=== PATIENT | female | born 1935 | race Hispanic/Latino ===

== ENCOUNTER 2018-02-02 11:50 | Emergency (ER) | payer OTHER ==
[2018-02-02 12:33] LABS: Absolute Lymphocytes (CBC) 1.7 K/uL (0.7-4.9); Absolute Monocytes 0.6 K/uL (0.1-1.3); Absolute Neutrophil 2.6 K/uL (1.8-8.0); Basophils % 0.6 % (0-1.3); Eosinophils % 1.1 % (0-4.4); Hematocrit 35.1 % (36.0-45.0); Lymphocytes % 34.6 % (15.3-44.8); MCH 30.6 pg (27.0-35.0); MCV 89.4 fL (80-100); MPV 11.3 fL (7.6-11.3); Monocytes % 11.3 % (3.3-12.3); RBC Red Blood Cell Count 3.92 M/uL (3.86-4.86)
--- NOTE | 2018-02-02 12:36 | RAD REPORT ---
EXAM DESCRIPTION: RAD - Chest Single View - 02/02/2018 12:28 pm CLINICAL HISTORY: Cough, weakness, fibrosis, diminishing appetite, arrhythmia COMPARISON: September 2015 TECHNIQUE: AP portable chest image was obtained 1223 hours . FINDINGS: Mild diffuse fibrotic lung pattern is present similar to the prior imaging study. This is accentuated slightly due to an under penetrated film technique and slightly more shallow inspiratory effort. Few small granulomatous type calcifications are seen in the lung parenchyma, stable from prio r imaging. No peripheral mass, infiltrate or failure finding. Trachea is midline. Heart and vasculatu re are normal. No measurable pleural effusion and no pneumothorax. Osteopenic and degenerative change s are present in the skeleton. No acute finding. No acute aortic findings suspected. IMPRESSION: Mild diffuse fibrotic lung pattern present matching the comparison. No acute finding dulce ntifiable.
[2018-02-02 13:05] LABS: Protime INR 1.08
[2018-02-02 13:56] LABS: ALT/SGPT 18 U/L (12-78); AST/SGOT 21 U/L (15-37); Albumin 3.1 g/dL (3.4-5.0); Alkaline Phosphatase 61 U/L (45-117); BUN Blood Urea Nitrogen 15 mg/dL (7-18); Bicarbonate 29 mmol/L (21-32); Bilirubin Direct 0.2 mg/dL (0-0.2); Bilirubin Total 0.5 mg/dL (0.2-1.0); CKMB Creatine Kinase MB < 1.0 ng/mL (0.3-3.6); Creatine Phosphokinase 27 U/L (26-192); Glucose Level 80 mg/dL (74-106); Lipase 87 U/L (73-393); Magnesium 2.2 mg/dL (1.8-2.4); NT PRO-BNP 302 pg/mL (<450); Potassium 3.3 mmol/L (3.5-5.1); Protein, Total 6.7 g/dL (6.4-8.2); Sodium Level 141 mmol/L (136-145)
--- NOTE | 2018-02-02 14:19 | ER ---
Nurse's Notes [facility] Name: Cathy Orozco Age: 82 yrs Sex: Female : 1935 Arrival Date: 02/02/2018 Time: 11:56 Bed 17 Private MD: Diagnosis: Major depressive disorder, recurrent;Adjustment disorder with depressed mood;Type 2 diabetes mellitus;Cystitis;Hypokalemia Presentation: 02/02 11:57 Presenting complaint: EMS states: family reported pt has been deteriorating since her aa5 about 2 years ago and reported worsening decreased appetite x 2 weeks ago. EMS reports pt stated "I just don't have a reason to live anymore", but denies suicidal ideations. Pt denies pain. Transition of care: patient was not received from another setting of care. Onset of symptoms was 2017. Risk Assessment: Do you want to hurt yourself or someone else? Patient reports no desire to harm self or others. Initial Sepsis Screen: Does the patient meet any 2 criteria? No. Patient's initial sepsis screen is negative. Does the patient have a suspected source of infection? No. Patient's initial sepsis screen is negative. Care prior to arrival: Medication(s) given: Normal saline infusion, 200cc IV initiated. 20 GA, in the left forearm, Glucose check: 80. 11:57 Method Of Arrival: EMS: [facility] aa5 11:57 Acuity: GEORGETTE 3 aa5 Historical: - Allergies: 12:01 Ciprofloxacin; aa5 12:01 metformin; aa5 12:01 steroids; aa5 - PMHx: 12:01 Depression; Diabetes - NIDDM; dizziness-vertigo; Hyperlipidemia; Hypertension; aa5 palpitations; SVT; 12:00 Dementia; aa5 - PSHx: 12:01 Hysterectomy; Cholecystectomy; aa5 - Immunization history:: Adult Immunizations unknown. - Social history:: Smoking status: Patient/guardian denies using tobacco. - Ebola Screening: : No symptoms or risks identified at this time. - Family history:: not pertinent. Screenin:02 Abuse screen: Denies threats or abuse. Nutritional screening: decreased appetite. aa5 Tuberculosis screening: No symptoms or risk factors identified. Fall Risk Fall in past 12 months (25 points). Secondary diagnosis (15 points) dementia, IV access (20 points). Mental Status- Overestimates/Forgets Limitations (15 pts.). Total Stringer Fall Scale indicates High Risk Score (45 or more points). Fall prevention measures have been instituted. Side Rails Up X 2 Placed Close to Nursing Station. Assessment: 12:00 General: Appears comfortable, slender, Behavior is calm, cooperative. Pain: Denies aa5 pain. Neuro: Level of Consciousness is awake, alert, obeys commands, Oriented to person, place, situation, Business Development Agent are weak bilaterally Moves all extremities. Speech is normal, Facial symmetry appears normal, Pupils are PERRLA. Cardiovascular: Heart tones S1 S2 present Edema is absent. Rhythm is sinus rhythm. Respiratory: Airway is patent Respiratory effort is even, unlabored, Respiratory pattern is regular, symmetrical, Breath sounds are clear bilaterally. Denies cough, shortness of breath. GI: Abdomen is flat, non-distended, Bowel sounds present X 4 quads. Abd is soft and non tender X 4 quads. Reports decreased appetite. Pt states "I eat but only a little". When asked if pt has been depressed, pt states "I don't think so" Patient currently denies diarrhea, nausea, vomiting. : No signs and/or symptoms were reported regarding the genitourinary system. EENT: No signs and/or symptoms were reported regarding the EENT system. Derm: Skin is pink, warm \\T\\ dry. Musculoskeletal: Range of motion: intact in all extremities. 13:00 Reassessment: Patient and/or family updated on plan of care and expected duration. Pain aa5 level reassessed. Patient denies pain at this time. 13:00 Neuro: Level of Consciousness is awake, alert, obeys commands, Oriented to person, aa5 place, situation. Respiratory: Airway is patent Respiratory effort is even, unlabored, Respiratory pattern is regular, symmetrical. Derm: Skin is pink, warm \\T\\ dry. 14:00 Reassessment: Patient and/or family updated on plan of care and expected duration. Pain aa5 level reassessed. Patient denies pain at this time. Awaiting disposition. Pt's daughter remains at bedside . Neuro: Level of Consciousness is awake, alert, obeys commands, Oriented to person, place, situation. Respiratory: Airway is patent Respiratory effort is even, unlabored, Respiratory pattern is regular, symmetrical. Derm: Skin is pink, warm \\T\\ dry. 15:00 Neuro: Level of Consciousness is awake, alert, obeys commands, Oriented to person, aa5 place, situation. Respiratory: Airway is patent Respiratory effort is even, unlabored, Respiratory pattern is regular, symmetrical. Derm: Skin is pink, warm \\T\\ dry. Vital Signs: 12:00 BP 160 / 67; Pulse 62; Resp 16 S; Temp 98.0(O); Pulse Ox 99% on R/A; Pain 0/10; aa5 12:59 BP 168 / 60; Pulse 60; Resp 22; Pulse Ox 95% on R/A; mh5 14:04 BP 156 / 68; Pulse 61; Resp 20 S; Pulse Ox 98% on R/A; aa5 ED Course: 11:56 Patient arrived in ED. aa5 11:59 Triage completed. aa5 11:59 Arm band placed on. aa5 11:59 Patient has correct armband on for positive identification. Placed in gown. Bed in low aa5 position. Call light in reach. Side rails up X2. 12:03 Ced Weathers MD is Attending Physician. [place] 12:05 Renate Adan, IZABELA is Primary Nurse. aa5 12:10 Maintain EMS IV. Dressing intact. Good blood return noted. Site clean \\T\\ dry. Gauge \\T\\ aa 5 site: 20 G to L FA . 12:10 Initial lab(s) drawn, by ED staff, sent to lab. aa5 12:22 EKG done, by dye lab technician. reviewed by Ced Weathers MD. at1 12:25 X-ray completed. Portable x-ray completed in exam room. Patient tolerated procedure ag1 well. 12:26 XRAY Chest (1 view) In Process Unspecified. EDMS 15:10 No provider procedures requiring assistance completed. IV discontinued, intact, aa5 bleeding controlled, No redness/swelling at site. Pressure dressing applied. 15:15 Safety checks: Items removed: yes. Door open/sign placed on door: yes. Family/friend 5 present: no. Sitter present: Yes. Administered Medications: 12:15 Drug: NS 0.9% 1000 ml Route: IV; Rate: 125 ml/hr; Site: left forearm; aa5 15:10 Follow up: IV Status: Order to discontinue infusion aa5 14:45 Drug: Potassium Effervescent Tablet 25 mEq Route: PO; aa5 15:00 Follow up: Response: No adverse reaction aa5 14:45 Drug: Rocephin - (cefTRIAXone) 1 grams {Note: given IVP per pharmacy protocol at this aa5 time .} Route: IVPB; Infused Over: 30 mins; Site: left forearm; 15:00 Follow up: Response: No adverse reaction aa5 14:45 Drug: Bactrim (160 mg-800 mg (DS) 1 tablet Route: PO; aa5 15:00 Follow up: Response: No adverse reaction aa Outcome: 14:17 Discharge ordered by . mg 15:10 Discharged to home via wheelchair, with family. aa5 15:10 Condition: stable 15:10 Discharge instructions given to patient, family, Instructed on discharge instructions, follow up and referral plans. medication usage, Demonstrated understanding of instructions, follow-up care, medications, Prescriptions given X 1. 15:15 Patient left the ED. aa5 Addendum: 02/04/2018 10:56 Addendum: Culture Results: Positive urine culture. Bacteria is resistant to, has h b intermediate sensitivity, or is not tested against prescribed antibiotics. Report given to DAKOTA for further evaluation and then to 911 telecommunicator for follow up with patient. Phone call Prescription called-in to pharmacy of choice. [facility] in [place], Nitrofurontion 100 mg PO x 10 days. Signatures: Dispatcher [employer] Ced Chaudhari MD MD cha Calderon, Audri, RN RN aa5 Marva ulloa, workforce staffing advisor EKG Tat1 Ama Segunod ag1 Bee Wilson RN RN hb Martinez, Maria 5 Corrections: (The following items were deleted from the chart) 02/02 12:44 12:00 Neuro: Level of Consciousness is awake, alert, obeys commands, Oriented to aa5 person, place, time, situation, Business Development Agent are weak bilaterally Moves all extremities. Speech is normal, Facial symmetry appears normal, Pupils are PERRLA, aa5
--- NOTE | 2018-02-02 14:19 | EDPHYS ---
Physician Documentation [facility] Name: Cathy Orozco Age: 82 yrs Sex: Female : 1935 Arrival Date: 02/02/2018 Time: 11:56 Bed 17 Private MD: ED Physician Ced Weathers HPI: 02/02 13:35 This 82 yrs old Female presents to ER via EMS with complaints of Decreased mg Appetite. 13:35 depressed, not suicidal. Onset: The symptoms/episode began/occurred 7 day(s) ago. mg Severity of symptoms: At their worst the symptoms were mild moderate in the emergency department the symptoms are unchanged. The patient has not experienced similar symptoms in the past. Historical: - Allergies: 12:01 Ciprofloxacin; aa5 12:01 metformin; aa5 12:01 steroids; aa5 - PMHx: 12:01 Depression; Diabetes - NIDDM; dizziness-vertigo; Hyperlipidemia; Hypertension; aa5 palpitations; SVT; 12:00 Dementia; aa5 - PSHx: 12:01 Hysterectomy; Cholecystectomy; aa5 - Immunization history:: Adult Immunizations unknown. - Social history:: Smoking status: Patient/guardian denies using tobacco. - Ebola Screening: : No symptoms or risks identified at this time. - Family history:: not pertinent. ROS: 13:35 Constitutional: Negative for fever, chills, and weight loss, Eyes: Negative for injury, mg pain, redness, and discharge, ENT: Negative for injury, pain, and discharge, Neck: Negative for injury, pain, and swelling, Cardiovascular: Negative for chest pain, palpitations, and edema, Respiratory: Negative for shortness of breath, cough, wheezing, and pleuritic chest pain, Abdomen/GI: Negative for abdominal pain, nausea, vomiting, diarrhea, and constipation, Back: Negative for injury and pain, : Negative for injury, bleeding, discharge, and swelling, MS/Extremity: Negative for injury and deformity, Skin: Negative for injury, rash, and discoloration, Neuro: Negative for headache, weakness, numbness, tingling, and seizure, Allergy/Immunology: Negative for hives, rash, and allergies, Endocrine: Negative for neck swelling, polydipsia, polyuria, polyphagia, and marked weight changes, Hematologic/Lymphatic: Negative for swollen nodes, abnormal bleeding, and unusual bruising. 13:35 Psych: Positive for depression. Exam: 13:35 Constitutional: This is a well developed, well nourished patient who is awake, alert, mg and in no acute distress. Head/Face: Normocephalic, atraumatic. Eyes: Pupils equal round and reactive to light, extra-ocular motions intact. Lids and lashes normal. Conjunctiva and sclera are non-icteric and not injected. Cornea within normal limits. Periorbital areas with no swelling, redness, or edema. ENT: Nares patent. No nasal discharge, no septal abnormalities noted. Tympanic membranes are normal and external auditory canals are clear. Oropharynx with no redness, swelling, or masses, exudates, or evidence of obstruction, uvula midline. Mucous membranes moist. Neck: Trachea midline, no thyromegaly or masses palpated, and no cervical lymphadenopathy. Supple, full range of motion without nuchal rigidity, or vertebral point tenderness. No Meningismus. Chest/axilla: Normal chest wall appearance and motion. Nontender with no deformity. No lesions are appreciated. Cardiovascular: Regular rate and rhythm with a normal S1 and S2. No gallops, murmurs, or rubs. Normal PMI, no JVD. No pulse deficits. Respiratory: Lungs have equal breath sounds bilaterally, clear to auscultation and percussion. No rales, rhonchi or wheezes noted. No increased work of breathing, no retractions or nasal flaring. Abdomen/GI: Soft, non-tender, with normal bowel sounds. No distension or tympany. No guarding or rebound. No evidence of tenderness throughout. Back: No spinal tenderness. No costovertebral tenderness. Full range of motion. Female : Normal external genitalia. Skin: Warm, dry with normal turgor. Normal color with no rashes, no lesions, and no evidence of cellulitis. MS/ Extremity: Pulses equal, no cyanosis. Neurovascular intact. Full, normal range of motion. Neuro: Awake and alert, GCS 15, oriented to person, place, time, and situation. Cranial nerves II-XII grossly intact. Motor strength 5/5 in all extremities. Sensory grossly intact. Cerebellar exam normal. Normal gait. Psych: Awake, alert, with orientation to person, place and time. Behavior, mood, and affect are within normal limits. Vital Signs: 12:00 BP 160 / 67; Pulse 62; Resp 16 S; Temp 98.0(O); Pulse Ox 99% on R/A; Pain 0/10; aa5 12:59 BP 168 / 60; Pulse 60; Resp 22; Pulse Ox 95% on R/A; mh5 14:04 BP 156 / 68; Pulse 61; Resp 20 S; Pulse Ox 98% on R/A; aa5 MDM: 12:15 Patient medically screened. [facility] 13:37 Data reviewed: vital signs, nurses notes, lab test result(s), EKG, radiologic studies, mg plain films. 02/02 12:04 Order name: Basic Metabolic Panel; Complete Time: 14:15 [facility] 02/02 12:04 Order name: CBC with Diff; Complete Time: 13:35 [facility] 02/02 12:04 Order name: Ckmb; Complete Time: 14:15 [facility] 02/02 12:04 Order name: CPK; Complete Time: 14:15 [facility] 02/02 12:04 Order name: LFT's; Complete Time: 14:15 [facility] 02/02 12:04 Order name: Magnesium; Complete Time: 14:15 [facility] 02/02 12:04 Order name: NT PRO-BNP; Complete Time: 14:15 [facility] 02/02 12:04 Order name: PT-INR; Complete Time: 13:35 [facility] 02/02 12:04 Order name: Ptt, Activated; Complete Time: 13:35 [facility] 02/02 12:04 Order name: Troponin (emerg Dept Use Only); Complete Time: 13:35 [facility] 02/02 12:04 Order name: Lipase; Complete Time: 14:15 [facility] 02/02 12:04 Order name: Urine Culture [facility] 02/02 12:04 Order name: TSH; Complete Time: 14:15 [facility] 02/02 14:42 Order name: Urine Dipstick--Ancillary (enter results) 02/02 12:04 Order name: XRAY Chest (1 view); Complete Time: 13:35 [facility] 02/02 12:04 Order name: EKG; Complete Time: 12:05 [facility] 02/02 12:04 Order name: Cardiac monitoring; Complete Time: 12:06 [facility] 02/02 12:04 Order name: EKG - Nurse/Tech; Complete Time: 12:25 [facility] 02/02 12:04 Order name: IV Saline Lock; Complete Time: 12:06 [facility] 02/02 12:04 Order name: Labs collected and sent; Complete Time: 12:25 [facility] 02/02 12:04 Order name: O2 Per Protocol; Complete Time: 12:06 [facility] 02/02 12:04 Order name: O2 Sat Monitoring; Complete Time: 12:05 [facility] 02/02 12:04 Order name: Urine Dipstick-Ancillary (obtain specimen); Complete Time: 14:01 [facility] Administered Medications: 12:15 Drug: NS 0.9% 1000 ml Route: IV; Rate: 125 ml/hr; Site: left forearm; aa5 15:10 Follow up: IV Status: Order to discontinue infusion aa5 14:45 Drug: Potassium Effervescent Tablet 25 mEq Route: PO; aa5 15:00 Follow up: Response: No adverse reaction aa5 14:45 Drug: Rocephin - (cefTRIAXone) 1 grams {Note: given IVP per pharmacy protocol at this aa5 time .} Route: IVPB; Infused Over: 30 mins; Site: left forearm; 15:00 Follow up: Response: No adverse reaction aa5 14:45 Drug: Bactrim (160 mg-800 mg (DS) 1 tablet Route: PO; aa5 15:00 Follow up: Response: No adverse reaction aa5 Disposition: 02/02/18 14:17 Discharged to Home. Impression: Major depressive disorder, recurrent, Adjustment disorder with depressed mood, Type 2 diabetes mellitus, Cystitis, Hypokalemia. - Condition is Stable. - Discharge Instructions: Adjustment Disorder, Depression, Adult, Type 2 Diabetes Mellitus, Adult, Potassium Content of Foods, Dysuria, Depression, Adult, [id number], Type 2 Diabetes Mellitus, Adult, [id number], Hypokalemia. - Prescriptions for Bactrim DS 800- 160 mg Oral Tablet - take 1 tablet by ORAL route every 12 hours for 7 days; 14 tablet. - Medication Reconciliation Form, Thank You Letter, Antibiotic Education, Prescription Opioid Use form. - Follow up: Private Physician; When: 2 - 3 days; Reason: Recheck today's complaints, Continuance of care, Re-evaluation by your physician. - Problem is new. - Symptoms have improved. Signatures: Dispatcher [employer] EDCed Funes MD MD cha Calderon, Audri, RN RN aa5 Corrections: (The following items were deleted from the chart) 15:15 14:17 02/02/2018 14:17 Discharged to Home. Impression: Major depressive disorder, aa5 recurrent; Adjustment disorder with depressed mood; Type 2 diabetes mellitus; Cystitis; Hypokalemia. Condition is Stable. Discharge Instructions: Adjustment Disorder, Depression, Adult, Type 2 Diabetes Mellitus, Adult, Depression, Adult, [id number], Type 2 Diabetes Mellitus, Adult, [id number]. Forms are Medication Reconciliation Form, Thank You Letter, Antibiotic Education, Prescription Opioid Use. Follow up: Private Physician; When: 2 - 3 days; Reason: Recheck today's complaints, Continuance of care, Re-evaluation by your physician. Problem is new. Symptoms have improved. mg
[2018-02-02] MEDS ORDERED: POTASSIUM 25 MEQ EFFERV TAB ONE (14:32)
[2018-02-02] MEDS ORDERED: CEFTRIAXONE/SWI 1gm 1 GM/10 ML SYR ONE (14:33)
[2018-02-02] MEDS ORDERED: SMZ./TMP. 800/160 MG TABLET ONE (14:33)
--- NOTE | 2018-02-02 14:51 | EKG ---
Test Date: 2018-02-02 Test Time: 12:15:38 [employer] Cutting Supervisor: MY MEASUREMENT RESULTS: Intervals: Rate: 62 IN: 196 QRSD: 78 QT: 434 QTc: 440 [place]: P: 38 IN: 196 QRS: 46 T: 60 INTERPRETIVE STATEMENTS: Normal sinus rhythm Normal ECG Compared to ECG 10/09/2015 09:10:13 No significant changes Electronically Signed On 02-02-18 14:50:07 CDT by Tommie Kinsey
[2018-02-02 15:18] VITALS: TEMP 98
[2018-02-02 15:21] VITALS: BP 156/68; O2SAT 98
[2018-02-02 15:29] LABS: Urine Blood TRACE (NEG); Urine Glucose NEGATIVE (NEG); Urine Protein NEGATIVE (NEG); Urine pH 5.5 (5.0-7.0)
== END 2018-02-02 15:15 | disposition home or self-care (01) ==
LOC: ER 11:50
DX: F33.9 Major depressive disorder, recurrent, unspecified (principal); F43.21 Adjustment disorder with depressed mood; N30.90 Cystitis, unspecified without hematuria; E87.6 Hypokalemia; E78.5 Hyperlipidemia, unspecified; E11.9 Type 2 diabetes mellitus without complications; F03.90 Unspecified dementia, unspecified severity, without behavioral disturbance, psychotic disturbance, mood disturbance, and anxiety; Z88.1 Allergy status to other antibiotic agents; Z88.8 Allergy status to other drugs, medicaments and biological substances
CPT/HCPCS: 36415; 71045; 80048; 80076; 81003; 82550; 82553; 83690; 83735; 83880; 84443; 84484; 85025; 85610; 85730; 87077; 87086; 87088; 87186; 93005; 96361; 96374; 99284; J0696

== ENCOUNTER 2018-02-05 08:59 | Emergency (ER) | payer OTHER ==
[2018-02-05] MEDS ORDERED: ONDANSETRON 4 MG/2 ML VIAL ONE (09:29)
[2018-02-05 09:48] LABS: Absolute Lymphocytes (CBC) 1.1 K/uL (0.7-4.9); Absolute Monocytes 0.5 K/uL (0.1-1.3); Absolute Neutrophil 3.9 K/uL (1.8-8.0); Basophils % 0.6 % (0-1.3); Eosinophils % 0.3 % (0-4.4); Hematocrit 35.8 % (36.0-45.0); Lymphocytes % 19.5 % (15.3-44.8); MCV 90.2 fL (80-100); MPV 11.5 fL (7.6-11.3); Monocytes % 8.7 % (3.3-12.3); RBC Red Blood Cell Count 3.97 M/uL (3.86-4.86)
[2018-02-05 10:12] LABS: Albumin 3.4 g/dL (3.4-5.0); Bilirubin Direct 0.2 mg/dL (0-0.2); Bilirubin Total 0.5 mg/dL (0.2-1.0); Protein, Total 7.3 g/dL (6.4-8.2)
--- NOTE | 2018-02-05 12:33 | EDPHYS ---
Physician Documentation [facility] Name: Cathy Orozco Age: 82 yrs Sex: Female : 1935 Arrival Date: 02/05/2018 Time: 09:00 Bed 6 Private MD: ED Physician Noe Ramon HPI: 02/05 09:26 This 82 yrs old Female presents to ER via EMS with complaints of Vomiting. rn 09:26 The patient presents to the emergency department with nausea, vomiting. Onset: The rn symptoms/episode began/occurred 4 month(s) ago. Possible causes: unknown. Severity of symptoms: At their worst the symptoms were mild in the emergency department the symptoms are unchanged. The patient has experienced similar episodes in the past. Patient reports not feeling well for 4 months, states threw up last night twice, mild abd pain, no diarrhea, no fever/cough/chest pain/sob. 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 . Historical: - Allergies: 09:05 Ciprofloxacin; tw2 09:05 metformin; tw2 09:05 steroids; tw2 - Home Meds: 09:05 citalopram 10 mg tab 1 tab once daily [Active]; glimepiride 4 mg Oral tab twice a day tw2 [Active]; lisinopril 40 mg Oral tab 1 tab once daily [Active]; pravastatin 40 mg Oral tab 1 tab once daily [Active]; 09:08 amlodipine 2.5 mg tab 1 tab once daily [Active]; donepezil 5 mg oral TbDL once daily hb [Active]; fluoxetine 20 mg Oral cap 1 cap once daily [Active]; - PMHx: 09:05 Dementia; Diabetes - NIDDM; dizziness-vertigo; Hyperlipidemia; Hypertension; tw2 palpitations; SVT; Depression; - PSHx: 09:05 Hysterectomy; Cholecystectomy; tw2 - Immunization history:: Adult Immunizations. - Social history:: Smoking status: . - Ebola Screening: : Patient denies travel to an Ebola-affected area in the 21 days before illness onset. - Family history:: not pertinent. - Hospitalizations: : No recent hospitalization is reported. ROS: 09:26 Constitutional: Negative for fever, chills, and weight loss, Eyes: Negative for injury, rn pain, redness, and discharge, Neck: Negative for injury, pain, and swelling, Cardiovascular: Negative for chest pain, palpitations, and edema, Respiratory: Negative for shortness of breath, cough, wheezing, and pleuritic chest pain, Abdomen/GI: Negative for diarrhea, and constipation, MS/Extremity: Negative for injury and deformity, Skin: Negative for injury, rash, and discoloration, Neuro: Negative for headache, weakness, numbness, tingling, and seizure. Exam: 09:26 Constitutional: This is a well developed, well nourished patient who is awake, alert, rn and in no acute distress. Head/Face: Normocephalic, atraumatic. Eyes: Pupils equal round and reactive to light, extra-ocular motions intact. Lids and lashes normal. Conjunctiva and sclera are non-icteric and not injected. Cornea within normal limits. Periorbital areas with no swelling, redness, or edema. ENT: Nares patent. No nasal discharge, no septal abnormalities noted. Oropharynx with no redness, swelling, or masses, exudates, or evidence of obstruction, uvula midline. Mucous membranes moist. Neck: Trachea midline, no thyromegaly or masses palpated, and no cervical lymphadenopathy. Supple, full range of motion without nuchal rigidity, or vertebral point tenderness. No Meningismus. Cardiovascular: Regular rate and rhythm with a normal S1 and S2. No gallops, murmurs, or rubs. Normal PMI, no JVD. No pulse deficits. Respiratory: Lungs have equal breath sounds bilaterally, clear to auscultation and percussion. No rales, rhonchi or wheezes noted. No increased work of breathing, no retractions or nasal flaring. Abdomen/GI: Soft, non-tender, with normal bowel sounds. No distension or tympany. No guarding or rebound. No evidence of tenderness throughout. MS/ Extremity: Pulses equal, no cyanosis. Neurovascular intact. Full, normal range of motion. Equal circumference. Neuro: Awake and alert, GCS 15, oriented to person, place, and situation. Cranial nerves II-XII grossly intact. Motor strength 5/5 in all extremities. Sensory grossly intact. Vital Signs: 09:02 BP 168 / 62; Pulse 77; Resp 19; Temp 97.8(TE); Pulse Ox 100% on R/A; Weight 49.9 kg (R);tw2 09:53 BP 143 / 90; Pulse 69; Resp 16; Pulse Ox 98% on R/A; tw2 10:54 BP 153 / 56; Pulse 70; Resp 16; Pulse Ox 99% on R/A; tw2 11:49 BP 112 / 77; Pulse 73; Resp 14; Pulse Ox 96% on R/A; tw2 12:37 BP 136 / 47; Pulse 62; Resp 17; Pulse Ox 97% on R/A; tw2 13:30 BP 132 / 78; Pulse 64; Resp 15; Pulse Ox 100% on R/A; hb MDM: 09:00 Patient medically screened. rn 12:32 Differential diagnosis: Nonspecific abd pain, viral gastroenteritis. Data reviewed: rn vital signs, nurses notes, lab test result(s), and as a result, I will discharge patient. Counseling: I had a detailed discussion with the patient and/or guardian regarding: the historical points, exam findings, and any diagnostic results supporting the discharge/admit diagnosis, lab results, the need for outpatient follow up, to return to the emergency department if symptoms worsen or persist or if there are any questions or concerns that arise at home. Special discussion: I discussed with the patient/guardian in detail that at this point there is no indication for admission to the hospital. It is understood, however, that if the symptoms persist or worsen the patient needs to return immediately for re-evaluation. ED course: Daughter here, states she believes she is doing this for attention, has a problem sniffing rubbing alcohol and was upset, normal bloodwork, will dc home. Is currently on abx for UTI so no urine tested here. . 02/05 09:22 Order name: Basic Metabolic Panel; Complete Time: 10:24 rn 02/05 09:22 Order name: CBC with Diff; Complete Time: 10:01 rn 02/05 09:22 Order name: Hepatic Function; Complete Time: 10:24 rn 02/05 09:22 Order name: Lipase; Complete Time: 10:24 rn 02/05 09:25 Order name: ETOH Level; Complete Time: 10:43 rn 02/05 09:22 Order name: IV Saline Lock; Complete Time: 09:37 rn 02/05 09:22 Order name: Labs collected and sent; Complete Time: : rn Administered Medications: : Drug: Zofran 4 mg Route: IVP; Site: right antecubital; tw2 10:00 Follow up: Response: No adverse reaction; Nausea is decreased hb Disposition: 02/05/18 12:33 Discharged to Home. Impression: Nausea and vomiting. - Condition is Stable. - Discharge Instructions: Nausea and Vomiting, Adult. - Medication Reconciliation Form, Thank You Letter, Antibiotic Education, Prescription Opioid Use form. - Follow up: Private Physician; When: As needed; Reason: Recheck today's complaints, Re-evaluation by your physician. - Problem is new. - Symptoms have improved. Signatures: Dispatcher [employer] EDMS Noe Ramon MD MD rn Baxter, Heather, RN RN hb Wise, Tara, RN RN tw2 Corrections: (The following items were deleted from the chart) 13:45 12:33 02/05/2018 12:33 Discharged to Home. Impression: Nausea and vomiting. Condition hb is Stable. Forms are Medication Reconciliation Form, Thank You Letter, Antibiotic Education, Prescription Opioid Use. Follow up: Private Physician; When: As needed; Reason: Recheck today's complaints, Re-evaluation by your physician. Problem is new. Symptoms have improved. rn
--- NOTE | 2018-02-05 12:33 | ER ---
Nurse's Notes [facility] Name: Cathy Orozco Age: 82 yrs Sex: Female : 1935 Arrival Date: 02/05/2018 Time: 09:00 Bed 6 Private MD: Diagnosis: Nausea and vomiting Presentation: 02/05 09:01 Presenting complaint: EMS states: daughter came to give her meds this morning and pt tw2 wanted to know if daughter brought her alcohol to sniff and daughter said no, pt has not had alcohol to sniff for 3 days, daughter states pt is mad and now she wants to go to the ER, vs stable, 222 mg/dL blood glucose, also failure to thrive as spouse one year ago and pt has not been eating well, pt hx: DM, dementia, pt also has UTI was here a week ago. Transition of care: patient was not received from another setting of care. Onset of symptoms was February 05, 2018. Risk Assessment: Do you want to hurt yourself or someone else? Patient reports no desire to harm self or others. Initial Sepsis Screen: Does the patient meet any 2 criteria? No. Patient's initial sepsis screen is negative. Does the patient have a suspected source of infection? No. Patient's initial sepsis screen is negative. Care prior to arrival: None. 09:01 Method Of Arrival: EMS: [facility] tw2 09:01 Acuity: GEORGETTE 3 tw2 Historical: - Allergies: 09:05 Ciprofloxacin; tw2 09:05 metformin; tw2 09:05 steroids; tw2 - Home Meds: 09:05 citalopram 10 mg tab 1 tab once daily [Active]; glimepiride 4 mg Oral tab twice a day tw2 [Active]; lisinopril 40 mg Oral tab 1 tab once daily [Active]; pravastatin 40 mg Oral tab 1 tab once daily [Active]; 09:08 amlodipine 2.5 mg tab 1 tab once daily [Active]; donepezil 5 mg oral TbDL once daily hb [Active]; fluoxetine 20 mg Oral cap 1 cap once daily [Active]; - PMHx: 09:05 Dementia; Diabetes - NIDDM; dizziness-vertigo; Hyperlipidemia; Hypertension; tw2 palpitations; SVT; Depression; - PSHx: 09:05 Hysterectomy; Cholecystectomy; tw2 - Immunization history:: Adult Immunizations. - Social history:: Smoking status: . - Ebola Screening: : Patient denies travel to an Ebola-affected area in the 21 days before illness onset. - Family history:: not pertinent. - Hospitalizations: : No recent hospitalization is reported. Screenin:06 Abuse screen: Denies threats or abuse. Nutritional screening: No deficits noted. tw2 Tuberculosis screening: No symptoms or risk factors identified. Fall Risk None identified. Assessment: 09:08 General: Appears in no apparent distress. Behavior is appropriate for age. Pain: Denies tw2 pain. Neuro: Level of Consciousness is awake, alert, obeys commands, Oriented to person, place. Cardiovascular: Denies chest pain, shortness of breath, Heart tones S1 S2 Patient's skin is warm and dry. Respiratory: Airway is patent Respiratory effort is even, unlabored, Respiratory pattern is regular, symmetrical, Breath sounds are clear bilaterally. GI: Abdomen is flat, Bowel sounds present X 4 quads. Reports vomiting, once last night and once this morning. : No signs and/or symptoms were reported regarding the genitourinary system. EENT: No signs and/or symptoms were reported regarding the EENT system. Derm: No signs and/or symptoms reported regarding the dermatologic system. Musculoskeletal: Range of motion: intact in all extremities. 09:54 Reassessment: Patient appears in no apparent distress at this time. Patient and/or tw2 family updated on plan of care and expected duration. Pain level reassessed. 10:54 Reassessment: Patient appears in no apparent distress at this time. Patient and/or tw2 family updated on plan of care and expected duration. Pain level reassessed. 11:50 Reassessment: Patient appears in no apparent distress at this time. Patient and/or tw2 family updated on plan of care and expected duration. Pain level reassessed. 12:38 Reassessment: Patient appears in no apparent distress at this time. Patient and/or tw2 family updated on plan of care and expected duration. Pain level reassessed. 13:30 Reassessment: Patient appears in no apparent distress at this time. Patient and/or hb family updated on plan of care and expected duration. Pain level reassessed. Patient is alert, oriented x 3, equal unlabored respirations, skin warm/dry/pink. Patient states symptoms have improved. Vital Signs: 09:02 BP 168 / 62; Pulse 77; Resp 19; Temp 97.8(TE); Pulse Ox 100% on R/A; Weight 49.9 kg (R);tw2 09:53 BP 143 / 90; Pulse 69; Resp 16; Pulse Ox 98% on R/A; tw2 10:54 BP 153 / 56; Pulse 70; Resp 16; Pulse Ox 99% on R/A; tw2 11:49 BP 112 / 77; Pulse 73; Resp 14; Pulse Ox 96% on R/A; tw2 12:37 BP 136 / 47; Pulse 62; Resp 17; Pulse Ox 97% on R/A; tw2 13:30 BP 132 / 78; Pulse 64; Resp 15; Pulse Ox 100% on R/A; hb ED Course: 09:00 Patient arrived in ED. tw2 09:00 Noe Ramon MD is Attending Physician. rn 09:02 Triage completed. tw2 09:02 Arm band placed on. tw2 09:06 Bed in low position. Call light in reach. potline monitor on. Pulse ox on. NIBP on. tw2 Warm blanket given. 09:32 Bee Wilson, RN is Primary Nurse. hb 09:35 No provider procedures requiring assistance completed. Missed attempt(s): 22 gauge in tw2 left antecubital area. Bleeding controlled, band aid applied, catheter tip intact. Inserted saline lock: 22 gauge in right antecubital area, using aseptic technique. Blood collected. 13:39 IV discontinued, intact, bleeding controlled, No redness/swelling at site. Pressure hb dressing applied. Administered Medications: 09:37 Drug: Zofran 4 mg Route: IVP; Site: right antecubital; tw2 10:00 Follow up: Response: No adverse reaction; Nausea is decreased hb Outcome: 12:33 Discharge ordered by . rn 13:39 Discharged to home ambulatory, with family. hb 13:39 Condition: stable 13:39 Discharge instructions given to patient, family, Instructed on discharge instructions, follow up and referral plans. medication usage, Demonstrated understanding of instructions, follow-up care, medications. 13:45 Patient left the ED. hb Signatures: Noe Ramon MD MD rn Baxter, Heather, RN RN hb Wise, Tara, RN RN tw2 Corrections: (The following items were deleted from the chart) 09:06 09: Presenting complaint: EMS states: daughter came to give her meds this morning and tw2 pt wanted to know if daughter brought her alcohol to sniff and daughter said no, pt has not had alcohol to sniff for 3 days, daughter states pt is mad and now she wants to go to the ER tw2 09: Presenting complaint: EMS states: daughter came to give her meds this morning and tw2 pt wanted to know if daughter brought her alcohol to sniff and daughter said no, pt has not had alcohol to sniff for 3 days, daughter states pt is mad and now she wants to go to the ER, vs stable, 222 mg/dL blood glucose, also failure to thrive as spouse one year ago and pt has not been eating well tw2 09: Presenting complaint: EMS states: daughter came to give her meds this morning and tw2 pt wanted to know if daughter brought her alcohol to sniff and daughter said no, pt has not had alcohol to sniff for 3 days, daughter states pt is mad and now she wants to go to the ER, vs stable, 222 mg/dL blood glucose, also failure to thrive as spouse one year ago and pt has not been eating well, pt hx: DM, dementia, tw2
[2018-02-05 13:53] VITALS: TEMP 97.8
[2018-02-05 13:58] VITALS: BP 132/78; O2SAT 100
== END 2018-02-05 13:45 | disposition home or self-care (01) ==
LOC: ER 08:59
DX: R11.2 Nausea with vomiting, unspecified (principal); F03.90 Unspecified dementia, unspecified severity, without behavioral disturbance, psychotic disturbance, mood disturbance, and anxiety; E11.9 Type 2 diabetes mellitus without complications; I10 Essential (primary) hypertension; E78.5 Hyperlipidemia, unspecified; Z79.84 Long term (current) use of oral hypoglycemic drugs
CPT/HCPCS: 36415; 80048; 80076; 80320; 83690; 85025; 96374; 99284; J2405

== ENCOUNTER 2018-02-08 21:02 | Observation (INO) | payer OTHER ==
[2018-02-08 23:36] LABS: Absolute Lymphocytes (CBC) 1.4 K/uL (0.7-4.9); Absolute Monocytes 0.9 K/uL (0.1-1.3); Absolute Neutrophil 8.1 K/uL (1.8-8.0); Basophils % 0.4 % (0-1.3); Eosinophils % 0.1 % (0-4.4); Hematocrit 37.8 % (36.0-45.0); Lymphocytes % 13.3 % (15.3-44.8); MCH 30.9 pg (27.0-35.0); MCV 91.4 fL (80-100); Monocytes % 8.4 % (3.3-12.3); RBC Red Blood Cell Count 4.14 M/uL (3.86-4.86)
[2018-02-08 23:50] LABS: Magnesium 2.2 mg/dL (1.8-2.4); Potassium 4.4 mmol/L (3.5-5.1)
--- NOTE | 2018-02-09 00:07 | ER ---
Nurse's Notes [facility] Name: Cathy Orozco Age: 82 yrs Sex: Female : 1935 Arrival Date: 02/08/2018 Time: 21:06 Bed 23 Private MD: Raz Guevara Diagnosis: Syncope and collapse;Weakness Presentation: 02/08 21:25 Presenting complaint: pt's daughter states pt has been "huffing rubbing alcohol" they bb have taken it away from her and they think she is going into withdrawals pt has been having hallucinations, not wanting to eat and has not been taking care of herself. Daughter states they check her sugar for her diabetes every day and today when she got there pt was laying in bed and had been incontinent of urine. She got her in the shower and pt had syncopal episode pt has been seen here Thursday and Thursday for similar symptoms and diagnosed with a UTI on Thursday and is taking antibiotics. Daughter states pt's two years ago and pt is going downhill. Transition of care: patient was not received from another setting of care. Onset of symptoms is unknown. Risk Assessment: Do you want to hurt yourself or someone else? Patient reports no desire to harm self or others. Initial Sepsis Screen: Does the patient meet any 2 criteria? No. Patient's initial sepsis screen is negative. Does the patient have a suspected source of infection? No. Patient's initial sepsis screen is negative. Care prior to arrival: None. 21:25 Method Of Arrival: Wheelchair bb 21:25 Acuity: GEORGETTE 2 bb 21:26 Risk Assessment: Do you want to hurt yourself or someone else? Patient reports no rv desire to harm self or others. Historical: - Allergies: 21:30 Ciprofloxacin; bb 21:30 metformin; bb 21:30 steroids; bb - Home Meds: 21:30 amlodipine 2.5 mg tab 1 tab once daily [Active]; citalopram 10 mg tab 1 tab once daily bb [Active]; donepezil 5 mg Oral TbDL once daily [Active]; fluoxetine 20 mg Oral cap 1 cap once daily [Active]; glimepiride 4 mg Oral tab twice a day [Active]; lisinopril 40 mg Oral tab 1 tab once daily [Active]; pravastatin 40 mg Oral tab 1 tab once daily [Active]; - PMHx: 21:30 Dementia; Depression; Diabetes - NIDDM; dizziness-vertigo; Hyperlipidemia; bb Hypertension; palpitations; SVT; - PSHx: 21:30 Hysterectomy; Cholecystectomy; bb - Immunization history:: Adult Immunizations up to date. - Social history:: Smoking status: unknown. - Ebola Screening: : No symptoms or risks identified at this time. Screenin:26 Abuse screen: Denies threats or abuse. Denies injuries from another. Nutritional rv screening: No deficits noted. Tuberculosis screening: No symptoms or risk factors identified. Fall Risk None identified. Assessment: 21:25 General: Appears in no apparent distress. comfortable, Behavior is calm, cooperative. rv Pain: Denies pain. Neuro: Level of Consciousness is awake, alert, obeys commands, Oriented to person, place, time. Cardiovascular: Heart tones S1 S2 present. Respiratory: Airway is patent. GI: No signs and/or symptoms were reported involving the gastrointestinal system. : No signs and/or symptoms were reported regarding the genitourinary system. EENT: No signs and/or symptoms were reported regarding the EENT system. Derm: Skin is intact. 02/09 00:33 Reassessment: Patient appears in no apparent distress at this time. Patient and/or rv family updated on plan of care and expected duration. Pain level reassessed. Patient is alert, oriented x 3, equal unlabored respirations, skin warm/dry/pink. PATIENT CAME BACK FROM CT SCAN. FOR ADMISSION. AWAITING ADMITTING ORDERS FROM HOSPITALIST. Vital Signs: 02/08 21:30 BP 157 / 81; Pulse 75; Resp 18 S; Temp 97.8(O); Pulse Ox 99% on R/A; Weight 54.43 kg bb (R); Height 5 ft. 3 in. (160.02 cm) (R); Pain 0/10; 22:39 BP 144 / 94; Pulse 74; Pulse Ox 100% on R/A; rv 23:39 BP 158 / 62; Pulse 73; Pulse Ox 97% on R/A; rv 02/09 00:35 BP 156 / 68; Pulse 77; Pulse Ox 97% ; rv 01:12 BP 150 / 58; Pulse 78; Pulse Ox 98% on R/A; rv 02:24 BP 134 / 61; Pulse 74; Pulse Ox 96% on R/A; rv 02/08 21:30 Body Mass Index 21.26 (54.43 kg, 160.02 cm) bb NIH Stroke Scale Scores: 02/08 23:54 NIHSS Score: 0 ED Course: 21:06 Patient arrived in ED. al2 21:07 Raz Guevara DO is Private Physician. al2 21:14 Kade Gonzalez MD is Attending Physician. gs 21:24 Placed in gown. Side rails up X2. Warm blanket given. Pillow given. jp3 21:26 Arm band placed on left wrist. rv 21:29 Triage completed. bb 21:50 Warm blanket given. jp3 23:30 Inserted saline lock: 20 gauge in right antecubital area, using aseptic technique. rv 02/09 00:06 Jazmin Bautista MD is Hospitalizing Provider. gs 00:[address] via stretcher. kw1 00:23 CT completed. Patient tolerated procedure well. Patient moved back from CT. kw1 00:30 CT Head Brain wo Cont In Process Unspecified. EDMS 02:25 No provider procedures requiring assistance completed. Patient admitted, IV remains in rv place. intact. Administered Medications: No medications were administered Outcome: 00:07 Decision to Hospitalize by Provider. gs 02:25 Admitted to Tele accompanied by [facility], via stretcher, room 408, with chart, Report rv called to [place] 02:25 Condition: good 02:25 Instructed on the need for admit. 02:42 Patient left the ED. rv NIH Stroke Scale - NIH Stroke Score Date: 02/08/2018 Time: 23:54 Total Score = 0 1a. Level of Consciousness (LOC) - 0(Alert) 1b. Level of Consciousness (LOC) (Year \\T\\ Age) - 0(Both) 1c. LOC Commands (Open \\T\\ Closes Eyes/Ancillary Specialist) - 0(Both) 2. Best Gaze (Lateral Gaze Paresis) - 0(Normal) 3. Visual Field Loss - 0(No visual loss) 4. Facial Palsy - 0(Normal) 5a. Left Arm: Motor (10-second hold) - 0(No drift) 5b. Right Arm: Motor (10-second hold) - 0(No drift) 6a. Left Leg: Motor (5-second hold - always test supine) - 0(No drift) 6b. Right Leg: Motor (5-second hold - always test supine) - 0(No drift) 7. Limb Ataxia (finger/nose \\T\\ heel/hernandez - test with eyes open) - 0(Absent) 8. Sensory Loss (pinprick arms/legs/face) - 0(Normal) 9. Best Language: Aphasia (description/naming/reading) - 0(No aphasia) 10. Dysarthria (speech clarity - read or repeat words) - 0(Normal) 11. Extinction and Inattention (visual/tactile/auditory/spatial/personal) - 0(No abnormality) Initials: Signatures: Dispatcher [employer] Adrienne Villalobos RN RN bb Starr, Gregory, MD MD gs Wilhelm, Kimberly kw1 Vandana Crooks2 Skinny Ho RN RN rv Clayton Espinosa jp3 Corrections: (The following items were deleted from the chart) 02/08 23:38 23:38 Inserted saline lock: 20 gauge in right antecubital area, using aseptic rv technique. rv
--- NOTE | 2018-02-09 00:08 | EDPHYS ---
Physician Documentation [facility] Name: Cathy Orozco Age: 82 yrs Sex: Female : 1935 Arrival Date: 02/08/2018 Time: 21:06 Bed 23 Private MD: Raz Guevara ED Physician Kade Gonzalez HPI: 02/08 23:38 This 82 yrs old Female presents to ER via Wheelchair with complaints of Does gs not feel well. 23:38 This 82 yrs old Female presents to ER via Wheelchair with complaints of gs syncope. 23:54 The patient has experienced syncope, became unresponsive, collapsed. Onset: The gs symptoms/episode began/occurred acutely, 2 hour(s) ago. Duration: This was a single episode, that lasted an unknown period of time. Context: occurred at home, occurred while the patient was bathing in shower. Associated injury: The patient did not suffer any apparent associated injury. Associated signs and symptoms: Pertinent negatives: chest pain. Current symptoms: at baseline. The patient has experienced similar episodes in the past, a few times. The patient has been recently seen at the [facility] Department, last week, a couple of weeks ago. Historical: - Allergies: 21:30 Ciprofloxacin; bb 21:30 metformin; bb 21:30 steroids; bb - Home Meds: 21:30 amlodipine 2.5 mg tab 1 tab once daily [Active]; citalopram 10 mg tab 1 tab once daily bb [Active]; donepezil 5 mg Oral TbDL once daily [Active]; fluoxetine 20 mg Oral cap 1 cap once daily [Active]; glimepiride 4 mg Oral tab twice a day [Active]; lisinopril 40 mg Oral tab 1 tab once daily [Active]; pravastatin 40 mg Oral tab 1 tab once daily [Active]; - PMHx: 21:30 Dementia; Depression; Diabetes - NIDDM; dizziness-vertigo; Hyperlipidemia; bb Hypertension; palpitations; SVT; - PSHx: 21:30 Hysterectomy; Cholecystectomy; bb - Immunization history:: Adult Immunizations up to date. - Social history:: Smoking status: unknown. - Ebola Screening: : No symptoms or risks identified at this time. ROS: 23:54 Psych: Positive for inhalation of rubbing alcohol last time 1 week ago, has dementia, gs has had intermittent tremor. 23:54 All other systems are negative. Exam: 23:54 Head/Face: Normocephalic, atraumatic. Eyes: Pupils equal round and reactive to light, gs extra-ocular motions intact. Lids and lashes normal. Conjunctiva and sclera are non-icteric and not injected. Cornea within normal limits. Periorbital areas with no swelling, redness, or edema. 23:54 ENT: Nares patent. No nasal discharge, no septal abnormalities noted. Tympanic membranes are normal and external auditory canals are clear. Oropharynx with no redness, swelling, or masses, exudates, or evidence of obstruction, uvula midline. Mucous membranes moist. Neck: Trachea midline, no thyromegaly or masses palpated, and no cervical lymphadenopathy. Supple, full range of motion without nuchal rigidity, or vertebral point tenderness. No Meningismus. Chest/axilla: Normal chest wall appearance and motion. Nontender with no deformity. No lesions are appreciated. Cardiovascular: Regular rate and rhythm with a normal S1 and S2. No gallops, murmurs, or rubs. Normal PMI, no JVD. No pulse deficits. Respiratory: Lungs have equal breath sounds bilaterally, clear to auscultation and percussion. No rales, rhonchi or wheezes noted. No increased work of breathing, no retractions or nasal flaring. Abdomen/GI: Soft, non-tender, with normal bowel sounds. No distension or tympany. No guarding or rebound. No evidence of tenderness throughout. Back: No spinal tenderness. No costovertebral tenderness. Full range of motion. Skin: Warm, dry with normal turgor. Normal color with no rashes, no lesions, and no evidence of cellulitis. MS/ Extremity: Pulses equal, no cyanosis. Neurovascular intact. Full, normal range of motion. 23:54 ECG was reviewed by the Attending Physician. 23:54 Neuro: Orientation: to person, place, time, Cranial nerves: CN II- XII are normal as tested, Cerebellar function: no acute changes, Motor: moves all fours, Sensation: no obvious gross deficits, Abnormal movements: there are no abnormal movements. Vital Signs: 21:30 BP 157 / 81; Pulse 75; Resp 18 S; Temp 97.8(O); Pulse Ox 99% on R/A; Weight 54.43 kg bb (R); Height 5 ft. 3 in. (160.02 cm) (R); Pain 0/10; 22:39 BP 144 / 94; Pulse 74; Pulse Ox 100% on R/A; rv 23:39 BP 158 / 62; Pulse 73; Pulse Ox 97% on R/A; rv 02/09 00:35 BP 156 / 68; Pulse 77; Pulse Ox 97% ; rv 01:12 BP 150 / 58; Pulse 78; Pulse Ox 98% on R/A; rv 02:24 BP 134 / 61; Pulse 74; Pulse Ox 96% on R/A; rv 02/08 21:30 Body Mass Index 21.26 (54.43 kg, 160.02 cm) bb NIH Stroke Scale Scores: 02/08 23:54 NIHSS Score: 0 gs MDM: 22:45 Patient medically screened. 23:54 Differential Diagnosis: cardiac arrhythmia, cerebrovascular accident, drug effect, gs vasovagal episode. Data reviewed: vital signs, nurses notes. Response to treatment: the patient's symptoms have markedly improved after treatment, and as a result, I will admit patient. 02/09 00:07 ED course: family want pt admitted, discussed chronic nature of symptoms but with gs recent syncope could place in obs. family wants that done and see dr minaya in hospital. 02/08 23:20 Order name: Basic Metabolic Panel; Complete Time: 00:09 02/08 23:20 Order name: CBC with Diff; Complete Time: 00:09 02/08 23:20 Order name: Magnesium; Complete Time: 00:09 02/08 23:20 Order name: Troponin (emerg Dept Use Only); Complete Time: 00:09 02/08 23:20 Order name: EKG; Complete Time: 23:20 02/08 23:20 Order name: CT Head Brain wo Cont 02/08 23:20 Order name: Cardiac monitoring; Complete Time: 23:37 02/08 23:20 Order name: EKG - Nurse/Tech; Complete Time: 23:37 02/08 23:20 Order name: IV Saline Lock; Complete Time: 23:37 02/08 23:20 Order name: Labs collected and sent; Complete Time: 23:37 02/08 23:20 Order name: O2 Per Protocol; Complete Time: 23:37 02/08 23:20 Order name: O2 Sat Monitoring; Complete Time: 23:37 gs EC/23 23:54 Rate is 76 beats/min. Rhythm is regular. UT interval is normal. QRS interval is normal. gs QT interval is prolonged. Q waves are Old. T waves are Flattened. Clinical impression: NSR w/ Non-specific ST/T Changes and Abnormal EKG without significant change. Interpreted by me. Administered Medications: No medications were administered Disposition: 02/09/18 00:07 Hospitalization ordered by Jazmin Bautista for Observation. Preliminary diagnosis are Syncope and collapse, Weakness. - Bed requested for Telemetry/MedSurg (observation). - Status is Observation. rv - Condition is Stable. - Problem is an ongoing problem. - Symptoms are unchanged. UTI on Admission? No NIH Stroke Scale - NIH Stroke Score Date: 02/08/2018 Time: 23:54 Total Score = 0 1a. Level of Consciousness (LOC) - 0(Alert) 1b. Level of Consciousness (LOC) (Year \T\ Age) - 0(Both) 1c. LOC Commands (Open \T\ Closes Eyes/Human Resources Admin) - 0(Both) 2. Best Gaze (Lateral Gaze Paresis) - 0(Normal) 3. Visual Field Loss - 0(No visual loss) 4. Facial Palsy - 0(Normal) 5a. Left Arm: Motor (10-second hold) - 0(No drift) 5b. Right Arm: Motor (10-second hold) - 0(No drift) 6a. Left Leg: Motor (5-second hold - always test supine) - 0(No drift) 6b. Right Leg: Motor (5-second hold - always test supine) - 0(No drift) 7. Limb Ataxia (finger/nose \T\ heel/hernandez - test with eyes open) - 0(Absent) 8. Sensory Loss (pinprick arms/legs/face) - 0(Normal) 9. Best Language: Aphasia (description/naming/reading) - 0(No aphasia) 10. Dysarthria (speech clarity - read or repeat words) - 0(Normal) 11. Extinction and Inattention (visual/tactile/auditory/spatial/personal) - 0(No abnormality) Initials: Signatures: Dispatcher [employer] EDMS Windy Dawn RN RN Adrienne Acosta, RN RN Kade Guerin MD MD Skinny Ho RN RN rv Corrections: (The following items were deleted from the chart) 02/09 00:14 00:07 Hospitalization Ordered by Jazmin Bautista MD for Observation. Preliminary diagnosis is Syncope and collapse; Weakness. Bed requested for Telemetry/MedSurg (observation). Status is Observation. Condition is Stable. Problem is an ongoing problem. Symptoms are unchanged. UTI on Admission? No. 02:42 00:14 02/09/2018 00:07 Hospitalization Ordered by Jazmin Bautista MD for rv Observation. Preliminary diagnosis is Syncope and collapse; Weakness. Bed requested for Telemetry/MedSurg (observation). Status is Observation. Condition is Stable. Problem is an ongoing problem. Symptoms are unchanged. UTI on Admission? No.
--- NOTE | 2018-02-09 02:11 | P.HP ---
Certification for Inpatient Patient admitted to: Observation With expected LOS: <2 Midnights Practitioner: I am a practitioner with admitting privileges, knowledge of patient current condition, hospital course, and medical plan of care. Services: Services provided to patient in accordance with Admission requirements found in Title 42 Section 412.3 of the Code of Federal Regulations Patient History Date of Service: 02/09/18 Reason for admission: syncope History of Present Illness: Ms Orozco is an 82 years old woman with history of Dementia, which has been advancing lately, recently diagnosed with UTI, still on Bactrim treatment for 2 more days, HTN, DM II, who came to ED after have a syncopal episode. The patient lives by herself, she has 3 attentive daughters who offered to her move to their hoses with them but the patient refused. Today, one of her daughters went to check on her, and found the patient laying on the bed with urine around. Then, while the patient was taking a shower, she start shaking and then collapse, for about 1 minute. EMS was called, and then she was transferred to the hospital. It is remarkable to mention, that the patient use to smell rubbing alcohol most of the time, but since 1 week ago she stopped. Since so she start having visual hallucinations and delusional episodes. According to her daughter, the patient is not eating well nor drinking enough water. Allergies ciprofloxacin [From Cipro] Allergy (Verified 11/04/14 16:02) Unknown ciprofloxacin HCl [From Cipro] Allergy (Verified 11/04/14 16:02) Unknown metformin Allergy (Verified 11/04/14 16:02) Unknown steroids Allergy (Unknown, Uncoded 11/04/14 16:02) Unknown Home medications list reviewed: Yes Home Medications: Aspirin [Ecotrin 81 MG] 162 mg PO DAILY 11/04/14 Atorvastatin Calcium [Lipitor] 30 mg PO BID 11/04/14 Diltiazem HCl [Cartia Xt] 240 mg PO BEDTIME 11/04/14 Glimepiride [Amaryl] 4 mg PO BID 11/04/14 Amox/Clavulanate [Augmentin 875-125 Tab] 875 mg PO BID #24 tab 11/05/14 Metoprolol Succinate [Toprol Xl*] 25 mg PO BEDTIME #30 tab 11/05/14 - Past Medical/Surgical History Diabetic: Yes -: hypertension -: high cholesterol -: Diabetes -: dementia -: hysterectomy -: cholecystectomy - Family History Mother -: Cancer Notes: breast cancer Father -: Heart disease Notes: heart attack - Social History Smoking Status: Never smoker Alcohol use: No CD- Drugs: No Caffeine use: No Place of Residence: Home Review of Systems 10-point ROS is otherwise unremarkable Physical Examination - Physical Exam General: Alert, In no apparent distress, Demented, Confused HEENT: Atraumatic, PERRLA, Mucous membr. moist/pink, EOMI, Sclerae nonicteric Neck: Supple, 2+ carotid pulse no bruit, No LAD, Without JVD or thyroid abnormality Respiratory: Clear to auscultation bilaterally, Normal air movement Cardiovascular: Regular rate/rhythm, Normal S1 S2 Gastrointestinal: Normal bowel sounds, No tenderness Musculoskeletal: No tenderness Integumentary: No rashes Neurological: Normal speech, Normal strength at 5/5 x4 extr, Normal tone, Normal affect, Dementia Lymphatics: No axilla or inguinal lymphadenopathy - Studies Laboratory Data (last 24 hrs) 02/08/18 23:30: WBC 10.4 D, Hgb 12.8, Hct 37.8, Plt Count 182 02/08/18 23:30: Sodium 136, Potassium 4.4, BUN 25 H, Creatinine 1.20, Glucose 149 H, Magnesium 2.2 Assessment and Plan - Problems (Diagnosis) (1) Failure to thrive in adult Current Visit: Yes Status: Acute (2) Syncope Current Visit: Yes Status: Acute Qualifiers: Syncope type: unspecified Qualified Code(s): R55 - Syncope and collapse (3) Diabetes mellitus Current Visit: Yes Status: Acute Qualifiers: Diabetes mellitus type: type 2 Diabetes mellitus alf insulin use: without alf use Diabetes mellitus complication status: with unspecified complications Qualified Code(s): E11.8 - Type 2 diabetes mellitus with unspecified complications (4) HTN (hypertension) Current Visit: Yes Status: Acute Qualifiers: Hypertension type: essential hypertension Qualified Code(s): I10 - Essential (primary) hypertension (5) UTI (urinary tract infection) Current Visit: Yes Status: Acute Qualifiers: Urinary tract infection type: acute cystitis Hematuria presence: without hematuria Qualified Code(s): N30.00 - Acute cystitis without hematuria - Plan The patient will be admitted to the hospital due to syncopal episode. CT head showed no acute abnormalities. EKG SR at 76 bpm, no ST abnormalities. Differential diagnosis include seizure episode. Will order brain MRI, EEG, consult Neurologist. She has been treated with Bactrim for UTI, urine culture reported E.Coli, which is resistant to Bactrim. Will change to Rocephin while is here. Consult social service for placement option. - Advance Directives Does patient have a Living Will: Yes Does patient have a Durable POA for Healthcare: No - Code Status/Comfort Care Code Status Assessed: Yes Code Status: Full Code
[2018-02-09] MEDS ORDERED: ACETAMINOPHEN 500 MG TAB PO PRN (02:55)
[2018-02-09] MEDS ORDERED: ONDANSETRON 4 MG/2 ML VIAL IV PRN (02:55)
[2018-02-09] MEDS: NA CHLORIDE 0.9% 1,000 ML IV SCH ×3 (03:17→23:31)
[2018-02-09] MEDS: INSULIN -REGULAR HUMAN 50 UNIT/0.5 ML ML SQ SCH ×4 (07:30→21:00)
[2018-02-09] MEDS ORDERED: PNEUMOCOCCAL VACCINE 0.5 ML IMVAC ONE (08:00)
[2018-02-09] MEDS: AMLODIPINE 2.5 MG TAB PO SCH (08:57)
[2018-02-09] MEDS: ENOXAPARIN 40 MG/0.4 ML SQ SCH (08:59)
[2018-02-09] MEDS: CEFTRIAXONE/SWI 1gm 1 GM/10 ML SYR IV SCH (08:59)
[2018-02-09] MEDS ORDERED: ATORVASTATIN 20 MG TAB PO SCH (09:00)
[2018-02-09] MEDS ORDERED: CEFTRIAXONE 1 GM/NS 50 ML 1 GM/50 ML BAG IV SCH (09:00)
--- NOTE | 2018-02-09 09:51 | RAD REPORT ---
EXAM DESCRIPTION: CT - Head Brain Wo Cont - 02/09/2018 7:09 am CLINICAL HISTORY: Alteration of awareness/declining state COMPARISON: 2013 TECHNIQUE: Computed axial tomography of the head was obtained. IV contrast was not requested. All CT scans are performed using dose optimization technique as appropriate and may include automated exposure control or mA/KV adjustment according to patient size. FINDINGS: An intracranial bleed is not seen . The ventricles are normal in caliber. No extra-axial fluid collection is noted. Moderate low-density areas within periventricular, deep and subcortical white matter likely represent ischemic changes secondary to small vessel disease. Fluid within the sinuses/ mastoids is not seen. IMPRESSION: No acute intracranial abnormality is seen. If patient's symptoms persist MRI of the bra in would be recommended.
[2018-02-09] MEDS: FLUOXETINE 20 MG CAP PO SCH (11:00)
--- NOTE | 2018-02-09 12:14 | EKG ---
Test Date: 2018-02-08 Test Time: 23:30:44 Hr Administrator: MEASUREMENT RESULTS: Intervals: Rate: 76 NM: 180 QRSD: 74 QT: 420 QTc: 472 Hunters: P: 71 NM: 180 QRS: 65 T: 67 INTERPRETIVE STATEMENTS: Normal sinus rhythm Septal infarct, age undetermined Abnormal ECG Compared to ECG 02/02/2018 12:15:38 Myocardial infarct finding now present Electronically Signed On 02-09-18 12:11:54 CDT by Tommie Kinsey
--- NOTE | 2018-02-09 13:10 | ECHO ---
HEIGHT: 5 ft 3 in WEIGHT: 120 lb 0 oz DATE OF STUDY: 02/09/[address]: Jazmin Moore MD 2-DIMENSIONAL: YES M.MODE: YES DOPPLER: YES COLOR FLOW: YES TDS: PORTABLE: DEFINITY: BUBBLE STUDY: DIAGNOSIS: SYNCOPE CARDIAC HISTORY: CATHERIZATION: SURGERY: PROSTHETIC VALVE: PACEMAKER: MEASUREMENTS (cm) DIASTOLIC (NORMALS) SYSTOLIC (NORMALS) IVSd 1.0 (0.6-1.2) LA Diam 3.1 (1.9-4.0) LVEF 74% LVIDd 2.8 (3.5-5.7) LVIDs 1.7 (2.0-3.5) %FS 41% LVPWd 1.0 (0.6-1.2) Ao Diam 2.8 (2.0-3.7) 2 DIMENSIONAL ASSESSMENT: RIGHT ATRIUM: NORMAL LEFT ATRIUM: NORMAL RIGHT VENTRICLE: NORMAL LEFT VENTRICLE: NORMAL TRICUSPID VALVE: NORMAL MITRAL VALVE: NORMAL PULMONIC VALVE: NORMAL AORTIC VALVE: NORMAL PERICARDIAL EFFUSION: NONE AORTIC ROOT: NORAML LEFT VENTRICULAR WALL MOTION: NORMAL DOPPLER/COLOR FLOW: NORMAL COMMENTS: NORMAL LEFT VENTRICULAR SIZE AND FUNCTION. NO WALL MOTION ABNORMALITY. MITRAL ANNULAR CALCIFICATION. NO EFFUSION. TECHNOLOGIST: DIPESH SHAW
--- NOTE | 2018-02-09 13:54 | PN ---
Date of Progress Note: 02/09/2018 Subjective: The patient is seen and examined. Chart reviewed and case discussed with RN. Family at the bedside. Treatment plan explained. All questions answered. Review of Systems: Limited due to the patient's medical condition. Medications: List reviewed. Physical Examination: Vital Signs: Temperature 97.4, heart rate 80, blood pressure 191/77, respirations 18, O2 saturation 97% on room air. General: Awake, alert, oriented x2, not in any acute distress. Elderly female. CV: S1, S2. No murmurs. Respiratory: Moving air well bilaterally. No wheezing. Gastrointestinal: Abdomen is soft, nontender, nondistended. Positive bowel sounds. Extremities: No clubbing, cyanosis, or edema. Neurologic: Nonfocal. Laboratory Data: Glucose 105. Assessment And Plan: An 82-year-old female with; 1.Acute metabolic encephalopathy. 2.Syncopal episode. 3.Diabetes mellitus type 2 without long-term use of insulin with hyperglycemia. 4.Essential hypertension. 5.Urinary tract infection, acute cystitis without hematuria. Continue Rocephin. Follow up on urine culture. The patient was being treated with Bactrim as an outpatient. 6.Gastrointestinal and deep venous thrombosis prophylaxis addressed. Plan: The patient's syncopal episode may be due to seizure. The patient has some confusion recently along with some hallucinations. Neurology has been consulted. EEG will be ordered. We will obtain MRI of the brain to rule out cerebrovascular accident. Head CT scan was negative. May be due to ur inary tract infection. We will follow up on results and Neurology recommendations for now. We will obtain Physical Therapy consultation. Family wanting to place the patient in half-way. However, she has been refusing. Daughter is the medical power of divorce attorney. /VONDA Voice ID: [id number] Report ID: [id number]
--- NOTE | 2018-02-09 15:39 | CON ---
Reason For Consultation: Consultation called because of altered mental status and possible seizures. History Of Present Illness: Ms. Orozco is an 82-year-old patient, who I have seen in clinic for mi [id number] dementia due to possible Alzheimer disease along with moderate small-vessel ischemic d isease, therefore indicating condition of vascular dementia. She comes into the hospital with report ed paranoid thinking and also having a syncopal episode while in shower. The patient's family indica te that she had been smelling rubbing alcohol excessively over the last several weeks. The patient h erself indicates that her parents had done this in the past and that is the treatment for many condit ions. The daughters are very involved in her care actually found her earlier in the day in bed with urine and the patient had no explanation as to why it occurred. They then took her to the shower and as she was being cleaned up, she appeared to collapse and was shaking. At that point, she was broug ht into [facility] and had a head CT scan, which showed no acute ischemic or hemorrhagic mg nge, however, moderate small-vessel ischemic disease was identified. Her electrocardiogram showed no rmal sinus rhythm with septal infarct, age undetermined and her echocardiogram showed ejection fracti on of 78% without any significant abnormalities. Her complete blood count with differential was unre markable except for slightly elevated neutrophils of 77.8. WBCs were 10.4 and electrolyte panel show ed BUN of 25, glucose 149, down to 105. Past Medical History: Includes hypertension, dyslipidemia, diabetes mellitus, dementia as indicated. Past Surgical History: Hysterectomy, cholecystectomy. Family History: Cancer in mother and also breast cancer in the family and father with heart disease and had myocardial infarction. Allergies: CIPROFLOXACIN, METFORMIN, STEROIDS. Home Medications: Aspirin 162 mg daily, Lipitor 30 mg twice daily, diltiazem 240 mg at bedtime, Abil danette 4 mg twice daily, Augmentin twice daily, and metoprolol 25 mg at bedtime. Social History: No alcohol, tobacco, or IV drug use. The patient has 4 daughters involved in her ca re. Review of Systems: No reported recent fevers, chills, nausea, vomiting, myalgias, arthralgias, rash, weight change, head ache. Physical Examination: Vital Signs: Blood pressure 154/70, pulse 76, respiratory rate 18, temperature 97, oxygen saturation 97%. Weight 120 pounds. Height 5 feet 3 inches. GENERAL: Ms. Orozco is resting in bed. She appears to be in no acute distress. Her knees are gabriel t. She is lying on the right side. HEENT: She appears normocephalic and atraumatic. Sclerae appear anicteric. Oropharynx moist and pi nk. Neck: Supple. Chest: Clear. Extremities: Show no edema or cyanosis. Abdomen: Soft. Neurologic: She is alert and oriented to person and on repeated questioning to place and she is able to follow simple instructions without difficulties. Her cranial nerves reveal no focal deficits on 2 through 12. Her motor examination, she has equal movement in upper and lower extremities bilateral ly. Coordination appear intact. She was about to have an EEG and was not ambulated. It should be n oted, she was seen in the clinic 2 weeks ago and her clock draw test score was 4/4. Assessment: Ms. Orozco is an 82-year-old patient with chronic dementia and superimposed acute ence phalopathy. Her differential diagnoses does include a complex partial seizure, less likely a cerebra l ischemic event, also possible infection such as urinary tract infection with toxic encephalopathy, also since history is of excessive sniffing of isopropyl rubbing alcohol, may be a contributing facto r to confusion, although the patient denies ingesting the rubbing alcohol. Plan: 1.We will follow up EEG. 2.I will follow up brain MRI. 3.Depending on the findings may consider lumbar puncture. DANIEL/VONDA Voice ID: [id number] Report ID: [id number]
[2018-02-09] MEDS: ATORVASTATIN 10 MG TAB PO SCH (20:22)
[2018-02-09] MEDS: DONEPEZIL HCL 5 MG TAB PO SCH (20:23)
[2018-02-09] MEDS: METOPROLOL XL 25 MG TAB PO SCH (20:24)
[2018-02-09] MEDS ORDERED: SMZ./TMP. 800/160 MG TABLET PO SCH (21:00)
[2018-02-10 05:02] VITALS: BMI 33.6
[2018-02-10 06:32] LABS: Absolute Lymphocytes (CBC) 1.9 K/uL (0.7-4.9); Absolute Monocytes 0.7 K/uL (0.1-1.3); Basophils % 0.8 % (0-1.3); Eosinophils % 1.8 % (0-4.4); Hematocrit 33.2 % (36.0-45.0); Lymphocytes % 32.6 % (15.3-44.8); MCH 31.3 pg (27.0-35.0); MCV 90.6 fL (80-100); Monocytes % 12.3 % (3.3-12.3); RBC Red Blood Cell Count 3.66 M/uL (3.86-4.86)
[2018-02-10 06:48] LABS: Magnesium 2.1 mg/dL (1.8-2.4); Potassium 3.9 mmol/L (3.5-5.1)
[2018-02-10] MEDS: INSULIN -REGULAR HUMAN 50 UNIT/0.5 ML ML SQ SCH ×4 (07:30→21:00)
[2018-02-10] MEDS: ENOXAPARIN 40 MG/0.4 ML SQ SCH (08:42)
[2018-02-10] MEDS: CEFTRIAXONE/SWI 1gm 1 GM/10 ML SYR IV SCH (08:43)
[2018-02-10] MEDS: AMLODIPINE 2.5 MG TAB PO SCH (08:43)
[2018-02-10] MEDS: GLIMEPIRIDE 2 MG TABLET PO SCH (08:44)
[2018-02-10] MEDS: FLUOXETINE 20 MG CAP PO SCH (08:44)
[2018-02-10] MEDS ORDERED: POTASSIUM 25 MEQ EFFERV TAB PO ONE (09:00)
[2018-02-10] MEDS: NA CHLORIDE 0.9% 1,000 ML IV SCH ×3 (11:12→23:30)
--- NOTE | 2018-02-10 12:31 | P.PN ---
Subjective Date of Service: 02/10/18 Chief Complaint: syncope disoriented and halluciating, seeing things in room. Talked to all 3 daughters, states that the patient is having halluciantions for 3 months, but get worse lately. Physical Examination - Vital Signs Temperature: 97.6 F Blood Pressure: 169/69 Pulse: 59 Respirations: 18 Pulse Ox (%): 98 - Physical Exam General: Alert, In no apparent distress, Oriented x2, Demented HEENT: Atraumatic, PERRLA, EOMI Neck: Supple, JVD not distended Respiratory: Clear to auscultation bilaterally, Normal air movement Cardiovascular: Regular rate/rhythm, Normal S1 S2 Gastrointestinal: Normal bowel sounds, No tenderness Musculoskeletal: No tenderness Integumentary: No rashes Neurological: Normal speech, Normal tone, Normal affect Lymphatics: No axilla or inguinal lymphadenopathy - Studies Medications List Reviewed: Yes Assessment And Plan - Current Problems (Diagnosis) (1) Syncope Onset Date: 02/09/18 Current Visit: Yes Status: Acute Qualifiers: Syncope type: unspecified Qualified Code(s): R55 - Syncope and collapse (2) Dementia, alcoholic Current Visit: Yes Status: Chronic Qualifiers: Dementia behavioral disturbance: with behavioral disturbance Qualified Code (s): F10.27 - 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 Current Visit: Yes Status: Chronic (4) Diabetes mellitus Onset Date: 02/09/18 Current Visit: Yes Status: Chronic Qualifiers: Diabetes mellitus type: type 2 Diabetes mellitus retirement insulin use: without remote computer terminal operator use Diabetes mellitus complication status: without complication Qualified Code(s): E11.9 - Type 2 diabetes mellitus without complications (5) HTN (hypertension) Onset Date: 02/09/18 Current Visit: Yes Status: Chronic Qualifiers: Hypertension type: essential hypertension Qualified Code(s): I10 - Essential (primary) hypertension (6) UTI (urinary tract infection) Onset Date: 02/09/18 Current Visit: Yes Status: Acute Qualifiers: Urinary tract infection type: acute cystitis Hematuria presence: without hematuria Qualified Code(s): N30.00 - Acute cystitis without hematuria - Plan --Syncope w/u MRI brain and EEG in progress --Cont Rocephinfor UTI, will change to PO Macrobid upon discharge --ECHO is wnl --Cons Thread Grinder placement
--- NOTE | 2018-02-10 13:13 | RAD REPORT ---
EXAM DESCRIPTION: MRI - Brain Wo Cont - 02/10/2018 1:00 pm CLINICAL HISTORY: syncope Drowsiness COMPARISON: Head Brain Wo Cont dated 02/08/2018; MRI BRAIN WITHOUT CONTRAST dated 01/30/2011; MRI IAC W AND WO CONTRAST dated 06/26/2009 TECHNIQUE: Multi-sequence, multiplanar MR imaging of the brain was performed without contrast. FINDINGS: No intracranial hemorrhage, hydrocephalus or extra-axial fluid collections.Advanced conflu ent T2/FLAIR hyperintensity in the periventricular and deep white matter is present compatible with c hronic microvascular ischemic changes. No edema or shift of midline structures. No findings to suspec t brain mass. DWI is negative for acute CVA. Midline structures are normally formed. Mastoid air cells and paranasal sinuses are clear. IMPRESSION: Advanced chronic white matter changes are suspected, significantly progressive since comparative study. Most likely, this is related to chronic microvascular ischemia. No acute CVA or other acute intracranial abnormality seen.
[2018-02-10] MEDS: ZIPRASIDONE 20 MG CAP PO SCH (15:37)
--- NOTE | 2018-02-10 18:28 | EEG ---
CHART: [id number] TEST ID#: [id number] DATE OF STUDY: 02/09/2018 THE EEG WAS RECORDED PORTABLE IN THE PATIENTS ROOM ON A 17 CHANNEL MACHINE. ELECTRODES WERE APPLIED IN THE USUAL MANNER USING THE INTERNATIONAL 10-20 SYSTEM. THE WAKING BACKGROUND RHYTHM IN THIS RECORD CONSISTS OF FAIRLY WELL DEVELOPED AND FAIRLY WELL ORGANIZED WAVES OF 9 HZ., MAXIMAL IN THE POSTERIOR HEAD REGIONS WHICH ATTENUATE NORMALLY WITH EYE OPENING. LOW-VOLTAGE 18-22 HZ ACTIVITY IS EXPRESSED IN THE FRONTAL AND CENTRAL REGIONS. MODERATE VOLTAGE 1.5-3 HZ MIXED WITH 4-6 HZ ACTIVITY IS EXPRESSED INTERMITTENTLY IN THE FRONTAL, CENTRAL AND POSTERIOR REGIONS. THERE ARE NO FOCAL OR LATERALIZING FEATURES. NO EPILEPTIFORM ACTIVITY APPEARS. SLEEP DID NOT OCCUR. HYPERVENTILATION WAS NOT PREFORMED. PHOTIC STIMULATION PRODUCED FAIR DRIVING BILATERALLY. IMPRESSION: ABNORMAL EEG. THIS IS A MILDLY ABNORMAL EEG DUE TO A MILDLY SLOW BACKGROUND. THIS IS A NON-SPECIFIC FINDING INDICATING THE PRESENCE OF A MILD DIFFUSE DISTURBANCE IN THE CEREBRAL FUNCTION.
[2018-02-10] MEDS: ATORVASTATIN 10 MG TAB PO SCH (20:44)
[2018-02-10] MEDS: NITROFURAN MACRO 100 MG CAP PO SCH (20:45)
[2018-02-10] MEDS: DONEPEZIL HCL 5 MG TAB PO SCH (20:45)
[2018-02-10] MEDS: METOPROLOL XL 25 MG TAB PO SCH (20:46)
[2018-02-11 04:27] LABS: Potassium 3.9 mmol/L (3.5-5.1)
[2018-02-11] MEDS: NA CHLORIDE 0.9% 1,000 ML IV SCH ×4 (04:55→19:17)
[2018-02-11 04:58] LABS: Urine Appearance CLEAR; Urine Bilirubin NEGATIVE (NEG); Urine Blood TRACE (NEG); Urine Color YELLOW; Urine Glucose NEGATIVE (NEG); Urine Protein NEGATIVE (NEG); Urine Urobilinogen 0.2 mg/dL (0.2-1.0)
[2018-02-11 05:09] LABS: Urine Microscopic Reflex ORDER UMIC
[2018-02-11] MEDS ORDERED: POTASSIUM 25 MEQ EFFERV TAB PO ONE (05:30)
[2018-02-11 05:38] LABS: Barbiturates NEGATIVE (NEGATIVE); Benzodiazepines NEGATIVE (NEGATIVE); Cocaine NEGATIVE (NEGATIVE); METHAMPHETAM NEGATIVE (NEGATIVE); Methadone NEGATIVE (NEGATIVE); Opiates NEGATIVE (NEGATIVE); Phencyclidine NEGATIVE (NEGATIVE); THC Cannibis NEGATIVE (NEGATIVE)
[2018-02-11 05:49] LABS: Urine Bacteria <20 /HPF (<20); Urine Culture Reflex Order NOT NEEDED; Urine RBC <5 /HPF (NONE SEEN)
[2018-02-11] MEDS: INSULIN -REGULAR HUMAN 50 UNIT/0.5 ML ML SQ SCH ×4 (07:30→20:34)
[2018-02-11] MEDS: GLIMEPIRIDE 2 MG TABLET PO SCH (08:00)
[2018-02-11] MEDS: NITROFURAN MACRO 100 MG CAP PO SCH ×2 (08:28→20:32)
[2018-02-11] MEDS: ZIPRASIDONE 20 MG CAP PO SCH (08:29)
[2018-02-11] MEDS: AMLODIPINE 2.5 MG TAB PO SCH (08:30)
[2018-02-11] MEDS: ENOXAPARIN 40 MG/0.4 ML SQ SCH (08:32)
[2018-02-11] MEDS: FLUOXETINE 20 MG CAP PO SCH (08:32)
--- NOTE | 2018-02-11 16:49 | P.DS ---
Admission Date: 02/09/18 Discharge Date: 02/11/18 Disposition: ROUTINE DISCHARGE Discharge Condition: GOOD Reason for Admission: syncope Consultations: Neuro - Problems (1) Failure to thrive in adult Onset Date: 02/09/18 Current Visit: Yes Status: Acute (2) Syncope Onset Date: 02/09/18 Current Visit: Yes Status: Acute Qualifiers: Syncope type: unspecified Qualified Code(s): R55 - Syncope and collapse (3) UTI (urinary tract infection) Onset Date: 02/09/18 Current Visit: Yes Status: Acute Qualifiers: Urinary tract infection type: acute cystitis Hematuria presence: without hematuria Qualified Code(s): N30.00 - Acute cystitis without hematuria (4) Dementia in Alzheimer's disease with delusions Current Visit: Yes Status: Chronic (5) Diabetes mellitus Onset Date: 02/09/18 Current Visit: Yes Status: Chronic Qualifiers: Diabetes mellitus type: type 2 Diabetes mellitus tool design draftsperson insulin use: without tool design draftsperson use Diabetes mellitus complication status: without complication Qualified Code(s): E11.9 - Type 2 diabetes mellitus without complications (6) HTN (hypertension) Onset Date: 02/09/18 Current Visit: Yes Status: Chronic Qualifiers: Hypertension type: essential hypertension Qualified Code(s): I10 - Essential (primary) hypertension Brief History of Present Illness: Ms Orozco is an 82 years old woman with history of Dementia, which has been advancing lately, recently diagnosed with UTI, still on Bactrim treatment for 2 more days, HTN, DM II, who came to ED after have a syncopal episode. The patient lives by herself, she has 3 attentive daughters who offered to her move to their hoses with them but the patient refused. Today, one of her daughters went to check on her, and found the patient laying on the bed with urine around. Then, while the patient was taking a shower, she start shaking and then collapse, for about 1 minute. EMS was called, and then she was transferred to the hospital. It is remarkable to mention, that the patient use to smell rubbing alcohol most of the time, but since 1 week ago she stopped. Since so she start having visual hallucinations and delusional episodes. According to her daughter, the patient is not eating well nor drinking enough water. Hospital Course: Overall during the hospital stay patient remained stable Patient was initially admitted to the hospital for altered mental status. Most likely toxic encephalopathy secondary to urinary tract infection versus advanced dementia of with visual hallucination. The patient was initially started on IV antibiotics and her urine culture was done. Patient was switched over to oral antibiotics and had marked improvement in her status. Patient however at baseline does have advanced dementia with the humeral disturbance and after antibiotics treatment was back to her baseline. Initially because of the syncopal episode and generalized weakness patient did have a brain MRI done here in the hospital along with an EEG which both were consistent with chronic changes and no acute abnormality noted. Neurology was consulted who agreed with the plan ends recommended the patient be discharged home on p.o. antibiotics for her urinary tract infection. Family discussion was done and family chose for patient to go to a [facility] facility however [facility] refuse patient and thus patient was transferred to a intermediate at [place] once family made arrangements for her to go there. No complications were noted during this hospital visit. Family demonstrated understanding regarding disease process and the care provider here in the hospital and were agreeable for intermediate transfer. Vital Signs/Physical Exam: Temp Pulse Resp BP Pulse Ox 97.5 F 50 18 131/59 L 97 02/11/18 12:00 02/11/18 12:00 02/11/18 12:00 02/11/18 12:00 02/11/18 12:00 General: Alert, In no apparent distress, Demented HEENT: Atraumatic Neck: Supple Respiratory: Clear to auscultation bilaterally, Normal air movement Cardiovascular: Regular rate/rhythm, Normal S1 S2 Gastrointestinal: Normal bowel sounds, Soft and benign, Non-distended Musculoskeletal: No clubbing Neurological: Abnormal speech, Abnormal strength, Abnormal tone Laboratory Data at Discharge: WBC 5.8 K/uL (4.3-10.9) D 02/10/18 05:44 Hgb 11.5 g/dL (12.0-15.0) L 02/10/18 05:44 Hct 33.2 % (36.0-45.0) L 02/10/18 05:44 Plt Count 162 K/uL (152-406) 02/10/18 05:44 Sodium 144 mmol/L (136-145) 02/11/18 03:48 Potassium 3.9 mmol/L (3.5-5.1) 02/11/18 03:48 BUN 12 mg/dL (7-18) 02/11/18 03:48 Creatinine 0.80 mg/dL (0.55-1.3) 02/11/18 03:48 Glucose 90 mg/dL (74-106) 02/11/18 03:48 Magnesium 2.1 mg/dL (1.8-2.4) 02/10/18 05:44 Home Medications: Amlodipine Besylate [Norvasc] 2.5 mg PO DAILY 02/09/18 Donepezil HCl 10 mg PO DAILY 02/09/18 Fluoxetine HCl [Prozac*] 20 mg PO DAILY 02/09/18 Glimepiride [Amaryl] 4 mg PO DAILY 02/09/18 Pravastatin Sodium 20 mg PO DAILY 02/09/18 Smz./Tmp. [Bactrim Ds 800 MG/160 MG*] 1 tab PO BID 02/09/18 Nitrofuran Macro [Macrobid*] 100 mg PO BID #14 cap 02/11/18 New Medications: Nitrofuran Macro [Macrobid*] 100 mg PO BID #14 cap Followup: Mookie Jackson MD [ASSOCIATE-ACTIVE - CAN ADMIT] -
[2018-02-11] MEDS ORDERED: D50W 25 GM/50 ML SYRINGE IV PRN (19:50)
[2018-02-11] MEDS: METOPROLOL XL 25 MG TAB PO SCH (20:32)
[2018-02-11] MEDS: ATORVASTATIN 10 MG TAB PO SCH (20:33)
[2018-02-11] MEDS: DONEPEZIL HCL 5 MG TAB PO SCH (20:33)
[2018-02-12] MEDS: NA CHLORIDE 0.9% 1,000 ML IV SCH (03:10)
[2018-02-12] MEDS ORDERED: HYDRALAZINE HCL 20 MG/ML VIAL IV PRN (04:03)
[2018-02-12] MEDS: INSULIN -REGULAR HUMAN 50 UNIT/0.5 ML ML SQ SCH (07:30)
[2018-02-12] MEDS: ZIPRASIDONE 20 MG CAP PO SCH (08:00)
[2018-02-12] MEDS: GLIMEPIRIDE 2 MG TABLET PO SCH (08:00)
[2018-02-12 09:19] VITALS: BP 156/69
[2018-02-12 09:19] LABS: Potassium 3.5 mmol/L (3.5-5.1); Sodium Level 147 mmol/L (136-145)
[2018-02-12 09:20] LABS: BUN Blood Urea Nitrogen 11 mg/dL (7-18); Bicarbonate 25 mmol/L (21-32)
[2018-02-12 09:21] VITALS: TEMP 96.9
[2018-02-12 09:43] VITALS: O2SAT 95
[2018-02-12 10:13] LABS: Glucose Level 41 mg/dL (74-106)
[2018-02-12] MEDS: NITROFURAN MACRO 100 MG CAP PO SCH (10:38)
[2018-02-12] MEDS: AMLODIPINE 2.5 MG TAB PO SCH (10:38)
[2018-02-12] MEDS: FLUOXETINE 20 MG CAP PO SCH (10:38)
[2018-02-12] MEDS: ENOXAPARIN 40 MG/0.4 ML SQ SCH (10:39)
--- NOTE | 2018-02-12 11:59 | P.PN ---
Subjective Date of Service: 02/12/18 Chief Complaint: syncope Subjective: No new changes, No C/O voiced Patient was accepted to the [facility] this morning and thus was discharged this morning to the [facility]. Review of Systems General: As per HPI Physical Examination - Vital Signs Temperature: 96.9 F Blood Pressure: 156/69 Pulse: 57 Respirations: 18 Pulse Ox (%): 95 - Physical Exam General: Alert, In no apparent distress, Demented HEENT: Atraumatic Neck: Supple Respiratory: Clear to auscultation bilaterally, Normal air movement Cardiovascular: Regular rate/rhythm, Normal S1 S2 Gastrointestinal: Normal bowel sounds, Soft and benign, Non-distended, No tenderness Musculoskeletal: No clubbing - Studies Medications List Reviewed: Yes Assessment & Plan - Problems (Diagnosis) (1) UTI (urinary tract infection) Onset Date: 02/09/18 Current Visit: Yes Status: Acute Qualifiers: Urinary tract infection type: acute cystitis Hematuria presence: without hematuria Qualified Code(s): N30.00 - Acute cystitis without hematuria (2) Failure to thrive in adult Onset Date: 02/09/18 Current Visit: Yes Status: Chronic (3) Syncope Onset Date: 02/09/18 Current Visit: Yes Status: Resolved Qualifiers: Syncope type: unspecified Qualified Code(s): R55 - Syncope and collapse (4) Dementia in Alzheimer's disease with delusions Current Visit: Yes Status: Acute (5) Diabetes mellitus Onset Date: 02/09/18 Current Visit: Yes Status: Chronic Qualifiers: Diabetes mellitus type: type 2 Diabetes mellitus manager intermediate insulin use: without detention use Diabetes mellitus complication status: without complication Qualified Code(s): E11.9 - Type 2 diabetes mellitus without complications (6) HTN (hypertension) Onset Date: 02/09/18 Current Visit: Yes Status: Chronic Qualifiers: Hypertension type: essential hypertension Qualified Code(s): I10 - Essential (primary) hypertension Discharge Plan: Detention Plan to discharge in: 24 Hours - Code Status/Comfort Care Code Status Assessed: Yes Critical Care: No
== END 2018-02-12 11:20 ==
LOC: ER 21:02 → ERHOLD 02-09 00:53 → 4TH 02-09 02:11
PROVIDERS: ADMIT Internal Medicine; ATTEND Internal Medicine
DX: N30.00 Acute cystitis without hematuria (principal); B96.20 Unspecified Escherichia coli [E. coli] as the cause of diseases classified elsewhere; G93.41 Metabolic encephalopathy; I10 Essential (primary) hypertension; E78.5 Hyperlipidemia, unspecified; E11.9 Type 2 diabetes mellitus without complications; R62.7 Adult failure to thrive; Z88.0 Allergy status to penicillin
CPT/HCPCS: 36415 ×3; 70450; 70551; 80048 ×4; 80307 ×8; 82962 ×17; 83735 ×2; 84484; 85025 ×2; 93005; 93306; 95816; 97110 ×2; 97116; 97163; 97530; 99285; J0360; J0696 ×2; J1650 ×4; J7030 ×8; 81003; 81015; G0378

== ENCOUNTER 2018-05-17 13:18 | Emergency (ER) | payer OTHER ==
[2018-05-17 14:48] LABS: Absolute Monocytes 0.5 K/uL (0.1-1.3); Absolute Neutrophil 4.1 K/uL (1.8-8.0); Basophils % 0.4 % (0-1.3); Eosinophils % 0.8 % (0-4.4); Hematocrit 36.8 % (36.0-45.0); Lymphocytes % 17.9 % (15.3-44.8); MCH 30.7 pg (27.0-35.0); MCV 91.6 fL (80-100); Monocytes % 8.5 % (3.3-12.3); RBC Red Blood Cell Count 4.02 M/uL (3.86-4.86)
[2018-05-17] MEDS ORDERED: NA CHLORIDE 0.9% 500 ML ONE ×2 (14:49→15:27)
[2018-05-17 14:50] LABS: Protime INR 1.08
[2018-05-17 15:03] LABS: Bilirubin Direct 0.2 mg/dL (0-0.2); Bilirubin Total 0.5 mg/dL (0.2-1.0); Magnesium 2.1 mg/dL (1.8-2.4); Potassium 3.5 mmol/L (3.5-5.1); Protein, Total 6.7 g/dL (6.4-8.2); Troponin (Emerg Dept Use Only) 0.02 ng/mL (0.0-0.045)
--- NOTE | 2018-05-17 15:22 | RAD REPORT ---
EXAM DESCRIPTION: RAD - Chest Single View - 05/17/2018 2:53 pm CLINICAL HISTORY: Weakness, shortness of breath, declining state COMPARISON: February 02 TECHNIQUE: AP portable chest image was obtained 1441 hours . FINDINGS: Fibrotic lung pattern matches the prior study. No superimposed failure, infiltrate or mass . Heart and vasculature are normal. No measurable pleural effusion and no pneumothorax. No acute bony abnormality seen. No acute aortic findings suspected. IMPRESSION: No acute cardiopulmonary process. Chronic interstitial pattern matches the comparison.
--- NOTE | 2018-05-17 15:44 | EKG ---
Test Date: 2018-05-17 Test Time: 14:33:38 Community Affairs Manager: SCAR MEASUREMENT RESULTS: Intervals: Rate: 66 WI: 208 QRSD: 60 QT: 450 QTc: 471 [place]: P: 72 WI: 208 QRS: 52 T: 27 INTERPRETIVE STATEMENTS: Normal sinus rhythm Septal infarct, age undetermined Abnormal ECG Compared to ECG 02/08/2018 23:30:44 No significant changes Electronically Signed On 05-17-18 15:44:09 CDT by Erich Jeffries
[2018-05-17 17:18] LABS: Urine Blood NEGATIVE (NEG); Urine Glucose NEGATIVE (NEG); Urine Protein NEGATIVE (NEG); Urine Specific Gravity 1.015 (1.005-1.030); Urine pH 5.5 (5.0-7.0)
--- NOTE | 2018-05-17 17:42 | ER ---
Nurse's Notes [facility] Name: Cathy Orozco Age: 83 yrs Sex: Female : 1935 Arrival Date: 05/17/2018 Time: 13:18 Bed 5 Private MD: Serge Donovan Diagnosis: Weakness Presentation: 05/17 13:19 Presenting complaint: EMS states: pt is a resident of [facility], reports having sg decreased appetite for several days now, not feeling well, denies pain, N/V/D/Fever denied as well. CT staff reports the pt having had a weak and thready pulse earlier today. Transition of care: patient was received from another setting of care (long-term care facility), [facility]. Onset of symptoms was May 17, 2018. Risk Assessment: Do you want to hurt yourself or someone else? Patient reports no desire to harm self or others. Initial Sepsis Screen: Does the patient meet any 2 criteria? No. Patient's initial sepsis screen is negative. Does the patient have a suspected source of infection? No. Patient's initial sepsis screen is negative. Care prior to arrival: Medication(s) given: Normal saline infusion, 500 mL, IV initiated. 20 GA, in the left antecubital area, Glucose check: 132. 13:19 Method Of Arrival: EMS: [facility] sg 13:19 Acuity: GEORGETTE 3 sg Historical: - Allergies: 13:24 Ciprofloxacin; sg 13:24 metformin; sg 13:24 steroids; sg 13:46 PENICILLINS; sg - Home Meds: 13:24 amlodipine 2.5 mg tab 1 tab once daily [Active]; citalopram 10 mg tab 1 tab once daily sg [Active]; glimepiride 4 mg Oral tab twice a day [Active]; lisinopril 40 mg Oral tab 1 tab once daily [Active]; pravastatin 40 mg Oral tab 1 tab once daily [Active]; 13:46 donepezil 23 mg oral tab 1 tab once daily [Active]; fluoxetine 40 mg oral cap 1 cap sg once daily [Active]; docusate sodium 100 mg Oral tab 1 tab once daily [Active]; hydroxyzine HCl 10 mg Oral tab daily [Active]; mirtazapine 7.5 mg Oral tab 1 tabs once daily [Active]; - PMHx: 13:24 Dementia; Depression; Diabetes - NIDDM; Hyperlipidemia; Hypertension; palpitations; sg SVT; dizziness-vertigo; - PSHx: 13:24 Hysterectomy; Cholecystectomy; sg - Immunization history:: Adult Immunizations up to date. - Social history:: Smoking status: Patient/guardian denies using tobacco. - Ebola Screening: : Patient negative for fever greater than or equal to 101.5 degrees Fahrenheit, and additional compatible Ebola Virus Disease symptoms Patient denies exposure to infectious person Patient denies travel to an Ebola-affected area in the 21 days before illness onset No symptoms or risks identified at this time. Screenin:20 Abuse screen: Denies threats or abuse. Denies injuries from another. Nutritional sg screening: No deficits noted. Tuberculosis screening: No symptoms or risk factors identified. Never had TB. Fall Risk None identified. Assessment: 13:20 General: Appears in no apparent distress. comfortable, well groomed, well developed, sg well nourished, Behavior is calm, cooperative, appropriate for age. Pain: Denies pain. Neuro: Level of Consciousness is awake, alert, obeys commands, Oriented to person, place, time, situation, Sheep Rancher are equal bilaterally Moves all extremities. Speech is normal, Facial symmetry appears normal. Cardiovascular: No deficits noted. Capillary refill is brisk in bilateral fingers Patient's skin is warm and dry. Chest pain is denied. Respiratory: Airway is patent Respiratory effort is even, unlabored, Respiratory pattern is regular, symmetrical. GI: Abdomen is flat, non-distended, Reports decreased appetite. : No signs and/or symptoms were reported regarding the genitourinary system. EENT: No signs and/or symptoms were reported regarding the EENT system. Derm: Skin is intact, is fragile, is thin, Skin is dry, Skin is pale, Skin temperature is. Musculoskeletal: No signs and/or symptoms reported regarding the musculoskeletal system. 14:21 Reassessment: Patient appears in no apparent distress at this time. Patient and/or sg family updated on plan of care and expected duration. Pain level reassessed. notified pt is awaiting his assessment and evaluation at this time, no new orders received, pt family at bedside, will continue to monitor. 15:30 Reassessment: Patient appears in no apparent distress at this time. Patient and/or sg family updated on plan of care and expected duration. Pain level reassessed. Patient states symptoms have not improved. 16:30 Reassessment: Patient appears in no apparent distress at this time. Patient and/or sg family updated on plan of care and expected duration. Pain level reassessed. Patient states symptoms have not improved. 17:30 Reassessment: Patient appears in no apparent distress at this time. Patient and/or sg family updated on plan of care and expected duration. Pain level reassessed. Patient states symptoms have not improved. Vital Signs: 13:21 BP 130 / 70; Pulse 76; Resp 19 S; Temp 98.0; Pulse Ox 98% on R/A; Weight 58.97 kg (R); sg Pain 0/10; 15:30 BP 126 / 70; Pulse 77; Resp 17; Pulse Ox 99% on R/A; Pain 0/10; sg 16:30 BP 130 / 77; Pulse 72; Resp 19; Pulse Ox 98% on R/A; Pain 0/10; sg 17:30 BP 132 / 70; Pulse 77; Resp 18; Temp 98.0; Pulse Ox 98% on R/A; Pain 0/10; sg ED Course: 13:18 Patient arrived in ED. sg 13:20 Kade Gonzalez MD is Attending Physician. gs 13:20 Triage completed. sg 13:20 Patient has correct armband on for positive identification. Bed in low position. Call sg light in reach. Side rails up X2. Adult w/ patient. court recording monitor on. Pulse ox on. NIBP on. Warm blanket given. Head of bed elevated. 13:20 Maintain EMS IV. Dressing intact. Site clean \T\ dry. Gauge \T\ site: 20 G LAC. sg 13:21 Serge Donovan MD is Private Physician. sg 13:21 Arm band placed on. sg 13:43 Romeo Vo, IZABELA is Primary Nurse. sg 14:30 Initial lab(s) drawn, by me, sent to lab. sg 14:47 X-ray completed. Portable x-ray completed in exam room. Patient tolerated procedure ls3 well. 14:48 XRAY Chest (1 view) In Process Unspecified. EDMS 15:01 EKG done, by exhibit technician. reviewed by Kade Gonzalez MD. at1 17:00 Urine collected: straight cath specimen, clear. iw 18:40 No provider procedures requiring assistance completed. IV discontinued, intact, sg bleeding controlled, No redness/swelling at site. Pressure dressing applied. Administered Medications: 15:00 Drug: NS 0.9% 1000 ml Route: IV; Rate: 1 bolus; Site: right antecubital; sg Outcome: 17:42 Discharge ordered by MD. gs 18:40 Discharged to home via wheelchair, with family. sg 18:40 Condition: good 18:40 Discharge instructions given to family, dietetic tech, report called to chris nurse at [facility] Instructed on discharge instructions, follow up and referral plans. safety practices, Demonstrated understanding of instructions, follow-up care. 18:45 Patient left the ED. sg Signatures: Dispatcher [employer] EDRomeo Santos RN RN Eve Rogers RN RN Marva Gaitan, feed inspection supervisor EKG Tat1 Kade Gonzalez MD MD gs Siler, Lynzie ls3 Corrections: (The following items were deleted from the chart) 13:46 13:24 Home Meds: donepezil 5 mg Oral TbDL once daily; [facility] 13:46 13:24 Home Meds: fluoxetine 20 mg Oral cap 1 cap once daily; [facility] 14:40 13:20 Initial lab(s) drawn, by me, sent to lab. sg sg
--- NOTE | 2018-05-17 17:43 | EDPHYS ---
Physician Documentation [facility] Name: Cathy Orozco Age: 83 yrs Sex: Female : 1935 Arrival Date: 05/17/2018 Time: 13:18 Bed 5 Private MD: Serge Gustafson ED Physician Kade Gonzalez HPI: 05/17 20:36 This 83 yrs old Female presents to ER via EMS with complaints of Decreased gs Appetite. 20:36 Onset: The symptoms/episode began/occurred 1 month(s) ago. Associated signs and gs symptoms: Pertinent negatives: altered mental status, dizziness, fever. Severity of symptoms: At their worst the symptoms were moderate in the emergency department the symptoms are unchanged. Patient's baseline: Neuro: alert but confused. The patient has experienced similar episodes in the past, several times. Historical: - Allergies: 13:24 Ciprofloxacin; sg 13:24 metformin; sg 13:24 steroids; sg 13:46 PENICILLINS; sg - Home Meds: 13:24 amlodipine 2.5 mg tab 1 tab once daily [Active]; citalopram 10 mg tab 1 tab once daily sg [Active]; glimepiride 4 mg Oral tab twice a day [Active]; lisinopril 40 mg Oral tab 1 tab once daily [Active]; pravastatin 40 mg Oral tab 1 tab once daily [Active]; 13:46 donepezil 23 mg oral tab 1 tab once daily [Active]; fluoxetine 40 mg oral cap 1 cap sg once daily [Active]; docusate sodium 100 mg Oral tab 1 tab once daily [Active]; hydroxyzine HCl 10 mg Oral tab daily [Active]; mirtazapine 7.5 mg Oral tab 1 tabs once daily [Active]; - PMHx: 13:24 Dementia; Depression; Diabetes - NIDDM; Hyperlipidemia; Hypertension; palpitations; sg SVT; dizziness-vertigo; - PSHx: 13:24 Hysterectomy; Cholecystectomy; sg - Immunization history:: Adult Immunizations up to date. - Social history:: Smoking status: Patient/guardian denies using tobacco. - Ebola Screening: : Patient negative for fever greater than or equal to 101.5 degrees Fahrenheit, and additional compatible Ebola Virus Disease symptoms Patient denies exposure to infectious person Patient denies travel to an Ebola-affected area in the 21 days before illness onset No symptoms or risks identified at this time. ROS: 20:36 Unable to obtain ROS due to baseline dementia. Exam: 20:36 Head/Face: Normocephalic, atraumatic. Eyes: Pupils equal round and reactive to light, gs extra-ocular motions intact. Lids and lashes normal. Conjunctiva and sclera are non-icteric and not injected. Cornea within normal limits. Periorbital areas with no swelling, redness, or edema. ENT: Nares patent. No nasal discharge, no septal abnormalities noted. Tympanic membranes are normal and external auditory canals are clear. Oropharynx with no redness, swelling, or masses, exudates, or evidence of obstruction, uvula midline. Mucous membranes moist. Neck: Trachea midline, no thyromegaly or masses palpated, and no cervical lymphadenopathy. Supple, full range of motion without nuchal rigidity, or vertebral point tenderness. No Meningismus. Chest/axilla: Normal chest wall appearance and motion. Nontender with no deformity. No lesions are appreciated. Cardiovascular: Regular rate and rhythm with a normal S1 and S2. No gallops, murmurs, or rubs. Normal PMI, no JVD. No pulse deficits. Respiratory: Lungs have equal breath sounds bilaterally, clear to auscultation and percussion. No rales, rhonchi or wheezes noted. No increased work of breathing, no retractions or nasal flaring. Abdomen/GI: Soft, non-tender, with normal bowel sounds. No distension or tympany. No guarding or rebound. No evidence of tenderness throughout. Back: No spinal tenderness. No costovertebral tenderness. Full range of motion. Skin: Warm, dry with normal turgor. Normal color with no rashes, no lesions, and no evidence of cellulitis. MS/ Extremity: Pulses equal, no cyanosis. Neurovascular intact. Full, normal range of motion. 20:36 Constitutional: The patient appears alert, awake. 20:36 Neuro: Orientation: to time, situation, Cranial nerves: CN II- XII are normal as tested, Cerebellar function: no acute changes, Motor: moves all fours, Sensation: no obvious gross deficits. 20:36 ECG was reviewed by the Attending Physician. Vital Signs: 13:21 BP 130 / 70; Pulse 76; Resp 19 S; Temp 98.0; Pulse Ox 98% on R/A; Weight 58.97 kg (R); sg Pain 0/10; 15:30 BP 126 / 70; Pulse 77; Resp 17; Pulse Ox 99% on R/A; Pain 0/10; sg 16:30 BP 130 / 77; Pulse 72; Resp 19; Pulse Ox 98% on R/A; Pain 0/10; sg 17:30 BP 132 / 70; Pulse 77; Resp 18; Temp 98.0; Pulse Ox 98% on R/A; Pain 0/10; sg MDM: 14:30 Patient medically screened. 20:36 Data reviewed: vital signs, nurses notes, lab test result(s), EKG, radiologic studies. ED course: ddx-sepsis,uti. 20:41 ED course: discussed with family dr gustafson plan is to boost nutrition pt stable. 05/17 14:22 Order name: Basic Metabolic Panel; Complete Time: 16:19 05/17 14:22 Order name: CBC with Diff; Complete Time: 16:19 05/17 14:22 Order name: LFT's; Complete Time: 16:19 05/17 14:22 Order name: Magnesium; Complete Time: 16:19 05/17 14:22 Order name: NT PRO-BNP; Complete Time: 16:19 05/17 14:22 Order name: PT-INR; Complete Time: 16:19 05/17 14:22 Order name: Troponin (emerg Dept Use Only); Complete Time: 16:19 05/17 14:22 Order name: XRAY Chest (1 view); Complete Time: 16:19 05/17 14:22 Order name: EKG; Complete Time: 14:22 05/17 14:22 Order name: Lipase; Complete Time: 16:19 05/17 14:22 Order name: Urine Microscopic Only; Complete Time: 20:42 05/17 17:07 Order name: Urine Dipstick--Ancillary (enter results); Complete Time: 17:41 05/17 18:36 Order name: Urine Culture [facility] 05/17 14:22 Order name: Cardiac monitoring; Complete Time: 14:26 05/17 14:22 Order name: EKG - Nurse/Tech; Complete Time: 14:37 05/17 14:22 Order name: IV Saline Lock; Complete Time: 14:26 05/17 14:22 Order name: Labs collected and sent; Complete Time: 14: 05/17 14:22 Order name: O2 Per Protocol; Complete Time: 14: 05/17 14:22 Order name: O2 Sat Monitoring; Complete Time: 14: 05/17 14:22 Order name: Urine Dipstick-Ancillary (obtain specimen); Complete Time: 17:00 EC:36 Rate is 66 beats/min. Rhythm is regular. CA interval is prolonged. QRS interval is gs normal. QT interval is normal. T waves are Normal. No ST changes noted. Clinical impression: NSR w/ Non-specific ST/T Changes. Interpreted by me. Administered Medications: 15:00 Drug: NS 0.9% 1000 ml Route: IV; Rate: 1 bolus; Site: right antecubital; sg Disposition: 05/17/18 17:42 Discharged to Home. Impression: Weakness. - Condition is Stable. - Discharge Instructions: Weakness, Fatigue. - Medication Reconciliation Form, Thank You Letter, Antibiotic Education, Prescription Opioid Use form. - Follow up: Private Physician; When: 2 - 3 days; Reason: Re-evaluation by your physician. Signatures: Dispatcher [employer] EDRomeo Santos RN RN sg Starr, Gregory, MD MD Corrections: (The following items were deleted from the chart) 13:46 13:24 Home Meds: donepezil 5 mg Oral TbDL once daily; [facility] 13:46 13:24 Home Meds: fluoxetine 20 mg Oral cap 1 cap once daily; [facility] 18:45 17:42 05/17/2018 17:42 Discharged to Home. Impression: Weakness. Condition is Stable. sg Forms are Medication Reconciliation Form, Thank You Letter, Antibiotic Education, Prescription Opioid Use. Follow up: Private Physician; When: 2 - 3 days; Reason: Re-evaluation by your physician.
[2018-05-17 18:25] LABS: Urine Bacteria 20-50 /HPF (<20); Urine Culture Reflex Order REFLEXED; Urine RBC <5 /HPF (NONE SEEN)
[2018-05-17 19:55] VITALS: BP 130/70; TEMP 98; O2SAT 98
== END 2018-05-17 18:45 | disposition home or self-care (01) ==
LOC: ER 13:18
DX: R53.1 Weakness (principal); E11.9 Type 2 diabetes mellitus without complications; E78.5 Hyperlipidemia, unspecified; I10 Essential (primary) hypertension; F03.90 Unspecified dementia, unspecified severity, without behavioral disturbance, psychotic disturbance, mood disturbance, and anxiety; Z88.0 Allergy status to penicillin
CPT/HCPCS: 36415; 71045; 80048; 80076; 81003; 81015; 83690; 83735; 83880; 84484; 85025; 85610; 87086; 87088; 93005; 99285

== ENCOUNTER 2018-06-24 10:24 | Emergency (ER) | payer OTHER ==
--- NOTE | 2018-06-24 11:03 | RAD REPORT ---
EXAM DESCRIPTION: CT - Head Brain Wo Cont - 06/24/2018 10:48 am CLINICAL HISTORY: TRAUMA Fall, head injury COMPARISON: Head Brain Wo Cont dated 02/08/2018; HEAD BRAIN W O CONTRAST dated 02/22/2014; Brain Wo Con t dated 02/10/2018 TECHNIQUE: All CT scans are performed using dose optimization technique as appropriate and may inclu de automated exposure control or mA/KV adjustment according to patient size. FINDINGS: No intracranial hemorrhage, hydrocephalus or extra-axial fluid collection.Advanced general ized brain atrophy is present with advanced periventricular and deep white matter chronic microvascul ar ischemic changes.No areas of brain edema or evidence of midline shift. The paranasal sinuses and mastoids are clear. The calvarium is intact. Small scalp hematoma on the ri ght anteriorly. IMPRESSION: No acute intracranial abnormality.
[2018-06-24] MEDS ORDERED: LIDOCAINE VISCOUS 2% SOLN 15 ML UDC ONE (11:24)
--- NOTE | 2018-06-24 11:57 | EDPHYS ---
Physician Documentation [facility] Name: Cathy Orozco Age: 83 yrs Sex: Female : 1935 Arrival Date: 06/24/2018 Time: 10:31 Bed 16 Private MD: ED Physician Noe Ramon HPI: 06/24 10:35 This 83 yrs old Female presents to ER via Unassigned with complaints of fall, kb laceration. 10:35 Details of fall: The patient fell from an upright position, while walking. Onset: The kb symptoms/episode began/occurred just prior to arrival. Associated injuries: The patient sustained injury to the head, laceration, 4 cm(s). Severity of symptoms: At their worst the symptoms were mild, moderate, in the emergency department the symptoms are unchanged. The patient has not experienced similar symptoms in the past. The patient has not recently seen a physician. Pt got out of bed, slipped and fell. No loc, ams, headache. Alert and oriented. 4cm laceration noted to right side of scalp. Historical: - Allergies: 10:41 Ciprofloxacin; ch 10:41 metformin; ch 10:41 PENICILLINS; ch 10:41 steroids; ch - Home Meds: 10:51 amlodipine 2.5 mg tab 1 tab once daily [Active]; citalopram 10 mg tab 1 tab once daily ch [Active]; docusate sodium 100 mg Oral tab 1 tab once daily [Active]; donepezil 23 mg Oral tab 1 tab once daily [Active]; fluoxetine 40 mg Oral cap 1 cap once daily [Active]; glimepiride 4 mg Oral tab twice a day [Active]; hydroxyzine HCl 10 mg Oral tab daily [Active]; lisinopril 40 mg Oral tab 1 tab once daily [Active]; mirtazapine 7.5 mg Oral tab 1 tabs once daily [Active]; pravastatin 40 mg Oral tab 1 tab once daily [Active]; - PMHx: 10:51 Dementia; Depression; Diabetes - NIDDM; dizziness-vertigo; Hyperlipidemia; ch Hypertension; palpitations; SVT; fall; - PSHx: 10:51 Hysterectomy; Cholecystectomy; ch - Immunization history:: Adult Immunizations up to date. - Social history:: Smoking status: Patient/guardian denies using tobacco, Patient/guardian denies using alcohol, street drugs. - Ebola Screening: : Patient negative for fever greater than or equal to 101.5 degrees Fahrenheit, and additional compatible Ebola Virus Disease symptoms Patient denies exposure to infectious person Patient denies travel to an Ebola-affected area in the 21 days before illness onset No symptoms or risks identified at this time. ROS: 10:33 Constitutional: Negative for fever, chills, and weight loss, ENT: Negative for injury, kb pain, and discharge, Neck: Negative for injury, pain, and swelling, Cardiovascular: Negative for chest pain, palpitations, and edema, Respiratory: Negative for shortness of breath, cough, wheezing, and pleuritic chest pain, Abdomen/GI: Negative for abdominal pain, nausea, vomiting, diarrhea, and constipation, Back: Negative for injury and pain, : Negative for injury, bleeding, discharge, and swelling, MS/Extremity: Negative for injury and deformity, Neuro: Negative for headache, weakness, numbness, tingling, and seizure. 10:33 Skin: Positive for laceration(s), of the right frontal area. Exam: 10:33 Constitutional: This is a well developed, well nourished patient who is awake, alert, kb and in no acute distress. Head/Face: Normocephalic, atraumatic. Chest/axilla: Normal chest wall appearance and motion. Nontender with no deformity. No lesions are appreciated. Cardiovascular: Regular rate and rhythm with a normal S1 and S2. No gallops, murmurs, or rubs. Normal PMI, no JVD. No pulse deficits. Respiratory: Lungs have equal breath sounds bilaterally, clear to auscultation and percussion. No rales, rhonchi or wheezes noted. No increased work of breathing, no retractions or nasal flaring. Abdomen/GI: Soft, non-tender, with normal bowel sounds. No distension or tympany. No guarding or rebound. No evidence of tenderness throughout. MS/ Extremity: Pulses equal, no cyanosis. Neurovascular intact. Full, normal range of motion. Neuro: Awake and alert, GCS 15, oriented to person, place, time, and situation. Cranial nerves II-XII grossly intact. Motor strength 5/5 in all extremities. Sensory grossly intact. Cerebellar exam normal. Normal gait. 10:33 Skin: injury, laceration(s), the wound is approximately 4 cm(s), of the right frontal area, that can be described as clean, no foreign body, linear, without bleeding. Vital Signs: 10:38 BP 132 / 78; Pulse 84; Resp 16; Temp 98.1; Pulse Ox 97% on R/A; Weight 45.36 kg; Height ch 5 ft. (152.40 cm); Pain 0/10; 11:41 BP 122 / 76; Pulse 94; Resp 16; Temp 97.9; Pulse Ox 99% on R/A; Pain 0/10; ch 10:38 Body Mass Index 19.53 (45.36 kg, 152.40 cm) ch Laceration: 11:52 Wound Repair of 4cm ( 1.6in ) subcutaneous laceration to right frontal area. Linear kb shaped.. Distal neuro/vascular/tendon intact. Wound prep: Extensive cleansing with hibiclenz by nurse, Wound irrigation with saline by nurse. Skin closed with 3 Abimael using staple gun. Dressed with Neosporin. Patient tolerated well. MDM: 10:31 Patient medically screened. kb 10:33 Data reviewed: vital signs, nurses notes. Data interpreted: Pulse oximetry: on room air kb is 98 %. Interpretation: normal. Counseling: I had a detailed discussion with the patient and/or guardian regarding: the historical points, exam findings, and any diagnostic results supporting the discharge/admit diagnosis, radiology results, the need for outpatient follow up, a family practitioner, to return to the emergency department if symptoms worsen or persist or if there are any questions or concerns that arise at home. 11:53 ED course: Laceration well approximated. 3 abimael inserted for prevent wound kb separation.. 06/24 10:32 Order name: CT Head Brain wo Cont; Complete Time: 11:07 kb 06/24 10:31 Order name: Wound Care; Complete Time: 11:44 kb Administered Medications: 11:25 Drug: Viscous Lidocaine Liquid (4 %) 5 ml Route: Mucous Membrane; Disposition: 17:57 Co-signature as Attending Physician, Noe Ramon MD. rn Disposition: 06/24/18 11:56 Discharged to Home. Impression: Fall on same level from slipping, tripping and stumbling, Laceration without foreign body of scalp, Superficial injury of head. - Condition is Stable. - Discharge Instructions: Laceration Care, Adult, [id number], Fall Prevention in the Home, [id number], Head Injury, Adult, [id number]. - Medication Reconciliation Form, Thank You Letter, Antibiotic Education, Prescription Opioid Use form. - Follow up: Emergency Department; When: As needed; Reason: Worsening of condition. Follow up: Private Physician; When: 2 - 3 days; Reason: Recheck today's complaints, Continuance of care, Re-evaluation by your physician. - Notes: Have abimael removed in 5-7 days Keep clean and dry Signatures: Dispatcher [employer] EDMS Maria T Plaza, JEMMA-C AREA ATTENDANT-Eliana Stevenson RN RN Noe Ramon MD MD corner trimmer operator: (The following items were deleted from the chart) 12:14 11:56 06/24/2018 11:56 Discharged to Home. Impression: Fall on same level from slipping, tripping and stumbling; Laceration without foreign body of scalp; Superficial injury of head. Condition is Stable. Forms are Medication Reconciliation Form, Thank You Letter, Antibiotic Education, Prescription Opioid Use. Follow up: Emergency Department; When: As needed; Reason: Worsening of condition. Follow up: Private Physician; When: 2 - 3 days; Reason: Recheck today's complaints, Continuance of care, Re-evaluation by your physician. kb
--- NOTE | 2018-06-24 11:57 | ER ---
Nurse's Notes [facility] Name: Cathy Orozco Age: 83 yrs Sex: Female : 1935 Arrival Date: 06/24/2018 Time: 10:31 Bed 16 Private MD: Diagnosis: Fall on same level from slipping, tripping and stumbling;Laceration without foreign body of scalp;Superficial injury of head Presentation: 06/24 10:38 Presenting complaint: EMS states: pt was getting out of bed in her socks, unassisted ch and fell. denies LOC, denies pain. Laceration to R parietal area. states she feels fine now. hit head on ground. aaox2, per norm. states she gets up and walks. Transition of care: patient was not received from another setting of care. Onset of symptoms was June 24, 2018 at 10:20. Risk Assessment: Do you want to hurt yourself or someone else? Patient reports no desire to harm self or others. Initial Sepsis Screen: Does the patient meet any 2 criteria? No. Patient's initial sepsis screen is negative. Does the patient have a suspected source of infection? No. Patient's initial sepsis screen is negative. Care prior to arrival: None. 10:38 Method Of Arrival: EMS: [facility] 10:38 Acuity: GEORGETTE 4 ch Triage Assessment: 10:38 General: Appears in no apparent distress. comfortable, Behavior is calm, cooperative, ch appropriate for age. Pain: Denies pain. Neuro: Level of Consciousness is awake, alert. 10:38 Cardiovascular: Denies chest pain. Respiratory: Airway is patent Trachea midline ch Respiratory effort is even, unlabored, Breath sounds are clear bilaterally. GI: No signs and/or symptoms were reported involving the gastrointestinal system. : No signs and/or symptoms were reported regarding the genitourinary system. Injury Description: Laceration sustained to right side of the back of head is clean, 0.5 to 2.5 cm long, not bleeding, was sustained 30-60 minutes ago. 10:38 Derm: Skin is fragile, is thin, Skin is pink, warm \T\ dry. ch Historical: - Allergies: 10:41 Ciprofloxacin; ch 10:41 metformin; ch 10:41 PENICILLINS; ch 10:41 steroids; ch - Home Meds: 10:51 amlodipine 2.5 mg tab 1 tab once daily [Active]; citalopram 10 mg tab 1 tab once daily ch [Active]; docusate sodium 100 mg Oral tab 1 tab once daily [Active]; donepezil 23 mg Oral tab 1 tab once daily [Active]; fluoxetine 40 mg Oral cap 1 cap once daily [Active]; glimepiride 4 mg Oral tab twice a day [Active]; hydroxyzine HCl 10 mg Oral tab daily [Active]; lisinopril 40 mg Oral tab 1 tab once daily [Active]; mirtazapine 7.5 mg Oral tab 1 tabs once daily [Active]; pravastatin 40 mg Oral tab 1 tab once daily [Active]; - PMHx: 10:51 Dementia; Depression; Diabetes - NIDDM; dizziness-vertigo; Hyperlipidemia; ch Hypertension; palpitations; SVT; fall; - PSHx: 10:51 Hysterectomy; Cholecystectomy; ch - Immunization history:: Adult Immunizations up to date. - Social history:: Smoking status: Patient/guardian denies using tobacco, Patient/guardian denies using alcohol, street drugs. - Ebola Screening: : Patient negative for fever greater than or equal to 101.5 degrees Fahrenheit, and additional compatible Ebola Virus Disease symptoms Patient denies exposure to infectious person Patient denies travel to an Ebola-affected area in the 21 days before illness onset No symptoms or risks identified at this time. Screenin:51 Abuse screen: Denies threats or abuse. Denies injuries from another. Nutritional ch screening: No deficits noted. Tuberculosis screening: No symptoms or risk factors identified. Fall Risk None identified. Assessment: 10:47 Reassessment: Patient appears in no apparent distress at this time. pt brief saturated ch with urine, pt brief changed. denies pain or complaints. 11:41 Reassessment: Patient appears in no apparent distress at this time. Patient and/or ch family updated on plan of care and expected duration. Pain level reassessed. Patient denies pain at this time. Patient states feeling better. Patient states symptoms have improved. 12:04 Reassessment: Patient appears in no apparent distress at this time. Patient and/or ch family updated on plan of care and expected duration. Pain level reassessed. Patient denies pain at this time. Patient states feeling better. Patient states symptoms have improved. Vital Signs: 10:38 BP 132 / 78; Pulse 84; Resp 16; Temp 98.1; Pulse Ox 97% on R/A; Weight 45.36 kg; Height ch 5 ft. (152.40 cm); Pain 0/10; 11:41 BP 122 / 76; Pulse 94; Resp 16; Temp 97.9; Pulse Ox 99% on R/A; Pain 0/10; ch 10:38 Body Mass Index 19.53 (45.36 kg, 152.40 cm) ED Course: 10:31 Patient arrived in ED. kb 10:31 Maria T Plaza [facility]C [facility] kb 10:31 Noe Ramon MD is Attending Physician. kb 10:38 Eliana Edge, IZABELA is Primary Nurse. ch 10:38 Arm band placed on left wrist. Patient placed in an exam room, on a stretcher, on pulse oximetry. 10:40 Triage completed. ch 10:47 CT completed. Patient tolerated procedure well. Patient moved to CT via stretcher. [email or web address] 10:50 CT Head Brain wo Cont In Process Unspecified. EDMS 10:51 Patient has correct armband on for positive identification. Placed in gown. Bed in low ch position. Call light in reach. Side rails up X2. Adult w/ patient. Pulse ox on. NIBP on. Warm blanket given. 10:51 Patient did not have IV access during this emergency room visit. 11:41 Wound care: to laceration located on right frontal area and right side of the back of ch head was cleaned with Hibiclens. 11:42 Assist provider with laceration repair on right side of the back of head that was 2.5 ch cm. or less using raymond. Set up tray. Performed by Maria T IVY Dressed with Neosporin, Patient tolerated well. Administered Medications: 11:25 Drug: Viscous Lidocaine Liquid (4 %) 5 ml Route: Mucous Membrane; Outcome: 11:42 Discharged to intermediate. via wheelchair with family driving. 11:42 Condition: improved 11:42 Instructed on discharge instructions, wound care, Demonstrated understanding of instructions, follow-up care, wound care. 11:56 Discharge ordered by . kb 12:14 Patient left the ED. Signatures: Dispatcher [employer] EDSC Maria T Plaza FNP-C FNP-Ckb Hammond, Eliana, RN RN Eveline Christensen [email or web address] Corrections: (The following items were deleted from the chart) 10:41 10:38 Acuity: GEORGETTE 5 ariane thakkar
[2018-06-24 12:24] VITALS: BP 122/76; TEMP 97.9; O2SAT 99
== END 2018-06-24 12:14 | disposition home or self-care (01) ==
LOC: ER 10:24
PROC: 0JQ00ZZ Repair Scalp Subcutaneous Tissue and Fascia, Open Approach (ICD-10-PCS; principal; 2018-06-24)
DX: S01.01XA Laceration without foreign body of scalp, initial encounter (principal); W01.0XXA Fall on same level from slipping, tripping and stumbling without subsequent striking against object, initial encounter; Y93.89 Activity, other specified; Y92.003 Bedroom of unspecified non-institutional (private) residence as the place of occurrence of the external cause; Z88.0 Allergy status to penicillin; Z88.3 Allergy status to other anti-infective agents; Z88.8 Allergy status to other drugs, medicaments and biological substances; E11.9 Type 2 diabetes mellitus without complications; E78.5 Hyperlipidemia, unspecified; I10 Essential (primary) hypertension; F32.9 Major depressive disorder, single episode, unspecified
CPT/HCPCS: 70450; 99284

== ENCOUNTER 2018-07-09 09:08 | Emergency (ER) | payer OTHER ==
[2018-07-09] MEDS ORDERED: HYDROCODONE/APAP 5/325 MG TAB ONE (09:29)
--- NOTE | 2018-07-09 10:05 | RAD REPORT ---
EXAM DESCRIPTION: CT - [id number] - 07/09/2018 9:37 am CLINICAL HISTORY: Trauma, head and neck injury. SMASH INJURY COMPARISON: No comparisons TECHNIQUE: Axial 5 mm thick images of the head were obtained. Axial 2 mm thick images of the cervical spine were obtained with sagittal and coronal reconstruction images generated and reviewed. All CT scans are performed using dose optimization technique as appropriate and may include automated exposure control or mA/KV adjustment according to patient size. FINDINGS: CT HEAD WITHOUT CONTRAST: No acute hemorrhage, hydrocephalus or extra-axial collection is identified.Moderate generalized brain atrophy is present with moderate periventricular and deep white matter chronic microvascular ischemi c changes.No areas of brain edema or midline shift. The paranasal sinuses and mastoids are clear.The calvarium is intact. CT CERVICAL SPINE WITHOUT CONTRAST: No fracture or subluxation.Mild lower cervical degenerative changes.No prevertebral soft tissues swel ling is identified. IMPRESSION: No acute intracranial or cervical spine findings.
--- NOTE | 2018-07-09 10:18 | EDPHYS ---
Physician Documentation [facility] Name: Cathy Orozco Age: 83 yrs Sex: Female : 1935 Arrival Date: 07/09/2018 Time: 09:12 Bed 18 Private MD: Donaldo Delcid V ED Physician Noe Ramon HPI: 07/09 09:18 This 83 yrs old Female presents to ER via Unassigned with complaints of Fall snw Injury. 09:18 Details of fall: The patient fell from an upright position, while standing. Onset: The snw symptoms/episode began/occurred suddenly. Associated injuries: The patient sustained injury to the head, contusion. Severity of symptoms: At their worst the symptoms were moderate. The patient has experienced similar episodes in the past, several times. The patient has not recently seen a physician. Historical: - Allergies: 09:28 Ciprofloxacin; jl7 09:28 metformin; jl7 09:28 PENICILLINS; jl7 09:28 steroids; jl7 - PMHx: 09:28 Dementia; Depression; Diabetes - NIDDM; dizziness-vertigo; fall; Hyperlipidemia; jl7 Hypertension; palpitations; SVT; - Immunization history:: Adult Immunizations unknown. - Social history:: Smoking status: unknown. - Ebola Screening: : No symptoms or risks identified at this time. ROS: 09:16 Constitutional: Negative for fever, chills, and weight loss, Eyes: Negative for injury, snw pain, redness, and discharge, ENT: Negative for injury, pain, and discharge, Neck: Negative for injury, pain, and swelling, Cardiovascular: Negative for chest pain, palpitations, and edema, Respiratory: Negative for shortness of breath, cough, wheezing, and pleuritic chest pain, Abdomen/GI: Negative for abdominal pain, nausea, vomiting, diarrhea, and constipation, Back: Negative for injury and pain, : Negative for injury, bleeding, discharge, and swelling, Skin: Negative for injury, rash, and discoloration, Neuro: Negative for headache, weakness, numbness, tingling, and seizure, Psych: Negative for depression, anxiety, suicide ideation, homicidal ideation, and hallucinations. 09:16 MS/extremity: Positive for injury or acute deformity, contusion, decreased range of motion, pain, tenderness, of the left arm. Exam: 09:14 Constitutional: This is a well developed, well nourished patient who is awake, alert, snw and in no acute distress. 09:14 Eyes: Pupils equal round and reactive to light, extra-ocular motions intact. Lids and lashes normal. Conjunctiva and sclera are non-icteric and not injected. Cornea within normal limits. Periorbital areas with no swelling, redness, or edema. ENT: Nares patent. No nasal discharge, no septal abnormalities noted. Tympanic membranes are normal and external auditory canals are clear. Oropharynx with no redness, swelling, or masses, exudates, or evidence of obstruction, uvula midline. Mucous membranes moist. Neck: Trachea midline, no thyromegaly or masses palpated, and no cervical lymphadenopathy. Supple, full range of motion without nuchal rigidity, or vertebral point tenderness. No Meningismus. Chest/axilla: Normal chest wall appearance and motion. Nontender with no deformity. No lesions are appreciated. Cardiovascular: Regular rate and rhythm with a normal S1 and S2. No gallops, murmurs, or rubs. Normal PMI, no JVD. No pulse deficits. Respiratory: Lungs have equal breath sounds bilaterally, clear to auscultation and percussion. No rales, rhonchi or wheezes noted. No increased work of breathing, no retractions or nasal flaring. Abdomen/GI: Soft, non-tender, with normal bowel sounds. No distension or tympany. No guarding or rebound. No evidence of tenderness throughout. Back: No spinal tenderness. No costovertebral tenderness. Full range of motion. Skin: Warm, dry with normal turgor. Normal color with no rashes, no lesions, and no evidence of cellulitis. Neuro: Awake and alert, GCS 15, oriented to person, place, time, and situation. Cranial nerves II-XII grossly intact. Motor strength 5/5 in all extremities. Sensory grossly intact. Cerebellar exam normal. Normal gait. Psych: Awake, alert, with orientation to person, place and time. Behavior, mood, and affect are within normal limits. 09:14 Head/face: Noted is ecchymosis, that is moderate, of the left temporal area and right side of forehead. 09:14 Musculoskeletal/extremity: Extremities: grossly normal except: noted in the anterior aspect of left shoulder and left bicep: contusion, decreased ROM, pain, Circulation is intact in all extremities. Sensation intact. Vital Signs: 09:28 BP 140 / 65; Pulse 75; Resp 18 S; Temp 99.3(O); Pulse Ox 97% on R/A; jl7 10:30 BP 132 / 57; Pulse 74; Resp 16 S; Pulse Ox 98% on R/A; jl7 MDM: 09:12 Patient medically screened. snw 10:18 Data reviewed: vital signs, nurses notes. Data interpreted: Pulse oximetry: on room air snw is 97 %. Interpretation: normal. Counseling: I had a detailed discussion with the patient and/or guardian regarding: the historical points, exam findings, and any diagnostic results supporting the discharge/admit diagnosis, the presence of at least one elevated blood pressure reading (>120/80) during this emergency department visit, radiology results, the need for outpatient follow up, to return to the emergency department if symptoms worsen or persist or if there are any questions or concerns that arise at home. Special discussion: Based on the patient's history, exam and DX evaluation, there is no indication for emergent intervention or inpatient TX. It is understood by the patient/guardian that if the SXs persist or worsen they need to return immediately for re-evaluation. Based on the history and exam findings, there is no indication for further emergent testing or inpatient evaluation. I discussed with the patient/guardian the need to see the orthopedic surgeon for further evaluation of the symptoms. I discussed with the patient/guardian the need to see the primary care provider for further evaluation of the symptoms. 07/09 09:14 Order name: CT Head C Spine; Complete Time: 10:14 snw 07/09 09:14 Order name: Humerus Left XRAY; Complete Time: 10:27 snw 07/09 09:29 Order name: Shoulder Immobilizer; Complete Time: 10:49 snw Administered Medications: 09:23 Drug: [place] 5 mg-325 mg 1 tabs Route: PO; 09:54 Follow up: Response: No adverse reaction; Pain is decreased jl Disposition: 11:43 Co-signature as Attending Physician, Noe Ramon MD. rn Disposition: 07/09/18 10:17 Discharged to Home. Impression: Fall on same level, unspecified, Proximal left humerus fracture. - Condition is Stable. - Discharge Instructions: Fall Prevention in the Home, Humerus Fracture Treated With Immobilization. - Prescriptions for Tylenol- Codeine #3 300-30 mg Oral Tablet - take 1 tablet by ORAL route every 6 hours As needed; 20 tablet. - Medication Reconciliation Form, Thank You Letter, Antibiotic Education, Prescription Opioid Use form. - Follow up: Donaldo Delcid MD; When: 1 - 2 days; Reason: Recheck today's complaints, Continuance of care, Re-evaluation by your physician. Follow up: Emergency Department; When: As needed; Reason: Worsening of condition. Follow up: Waqas Araujo MD; When: 2 - 3 days; Reason: Recheck today's complaints, Continuance of care. Signatures: Dispatcher [employer] EDMS Mignon Fritz, PURCHASER-C PURCHASER-Csnw Noe Ramon MD MD rn Rita Vargas RN RN jl7 Corrections: (The following items were deleted from the chart) 10:49 10:17 07/09/2018 10:17 Discharged to Home. Impression: Fall on same level, unspecified; jl7 Proximal left humerus fracture. Condition is Stable. Forms are Medication Reconciliation Form, Thank You Letter, Antibiotic Education, Prescription Opioid Use. Follow up: Donaldo Delcid; When: 1 - 2 days; Reason: Recheck today's complaints, Continuance of care, Re-evaluation by your physician. Follow up: Emergency Department; When: As needed; Reason: Worsening of condition. Follow up: Waqas Araujo; When: 2 - 3 days; Reason: Recheck today's complaints, Continuance of care. snw
--- NOTE | 2018-07-09 10:18 | ER ---
Nurse's Notes [facility] Name: Cathy Orozco Age: 83 yrs Sex: Female : 1935 Arrival Date: 07/09/2018 Time: 09:12 Bed 18 Private MD: Donaldo Delcid V Diagnosis: Fall on same level, unspecified;Proximal left humerus fracture Presentation: 07/09 09:23 Presenting complaint: EMS states: Pt fell last night from bed trying to get up to the [facility] bathroom, initially no injuries were noted. At breakfast this morning the facility staff noticed the pt's left shoulder was swollen and there was pain to the site. Care prior to arrival: None. 09:23 Acuity: GEORGETTE 4 09:23 Method Of Arrival: EMS: [facility] 09:26 Transition of care: patient was received from another setting of care (long-term care [facility] facility), [facility]. Onset of symptoms was July 09, 2018. Risk Assessment: Do you want to hurt yourself or someone else? Patient reports no desire to harm self or others. Initial Sepsis Screen: Does the patient meet any 2 criteria? No. Patient's initial sepsis screen is negative. Does the patient have a suspected source of infection? No. Patient's initial sepsis screen is negative. Triage Assessment: 09:28 General: Appears in no apparent distress. uncomfortable, Behavior is calm, cooperative, jl7 appropriate for age. Pain: Complains of pain in left shoulder Pain does not radiate. Is continuous, Unable to use pain scale. Does not appear to understand pain scale. EENT: No signs and/or symptoms were reported regarding the EENT system. Neuro: Level of Consciousness is awake, alert, obeys commands, Oriented to person, place. Cardiovascular: Patient's skin is warm and dry. Respiratory: Airway is patent Respiratory effort is even, unlabored, Respiratory pattern is regular, symmetrical. GI: No signs and/or symptoms were reported involving the gastrointestinal system. : No signs and/or symptoms were reported regarding the genitourinary system. Derm: Skin is pink, warm \T\ dry. Musculoskeletal: Range of motion: limited in left shoulder Swelling present in anterior aspect of left shoulder. Historical: - Allergies: : Ciprofloxacin; :28 metformin; jl7 09:28 PENICILLINS; jl7 09:28 steroids; jl7 - PMHx: 09:28 Dementia; Depression; Diabetes - NIDDM; dizziness-vertigo; fall; Hyperlipidemia; jl7 Hypertension; palpitations; SVT; - Immunization history:: Adult Immunizations unknown. - Social history:: Smoking status: unknown. - Ebola Screening: : No symptoms or risks identified at this time. Screenin:32 Abuse screen: Denies threats or abuse. Denies injuries from another. Nutritional jl7 screening: No deficits noted. Tuberculosis screening: No symptoms or risk factors identified. Fall Risk Fall in past 12 months (25 points). Secondary diagnosis (15 points) dementia, Total Stringer Fall Scale indicates High Risk Score (45 or more points). Fall prevention measures have been instituted. Side Rails Up X 2 Placed Close to Nursing Station Frequent Obs/Assessments Occuring As available patient and family educated on Fall Prevention Program and Strategies. Assessment: 09:32 General: See triage assessment. jl7 10:30 Reassessment: Patient appears in no apparent distress at this time. Patient and/or jl7 family updated on plan of care and expected duration. Pain level reassessed. Patient is alert, oriented x 3, equal unlabored respirations, skin warm/dry/pink. Patient states feeling better. Patient states symptoms have improved. Vital Signs: 09:28 BP 140 / 65; Pulse 75; Resp 18 S; Temp 99.3(O); Pulse Ox 97% on R/A; jl7 10:30 BP 132 / 57; Pulse 74; Resp 16 S; Pulse Ox 98% on R/A; jl7 ED Course: 09:12 Patient arrived in ED. snw 09:13 Donaldo Delcid MD is Private Physician. snw 09:13 Noe Ramon MD is Attending Physician. snw 09:13 Mignon Fritz FNP-C [facility]. snw 09:16 Rita Vargas RN is Primary Nurse. jl7 09:26 Triage completed. jl7 09:28 Arm band placed on right wrist. jl7 09:30 Humerus Left XRAY In Process Unspecified. EDMS 09:32 Patient has correct armband on for positive identification. Bed in low position. Call jl7 light in reach. Side rails up X2. Pulse ox on. NIBP on. Warm blanket given. 09:37 CT Head C Spine In Process Unspecified. EDMS 10:15 Donaldo Delcid MD is Referral Physician. snw 10:15 Waqas Araujo MD is Referral Physician. snw 10:30 No provider procedures requiring assistance completed. Patient did not have IV access jl7 during this emergency room visit. Administered Medications: 09:23 Drug: [place] 5 mg-325 mg 1 tabs Route: PO; jl7 09:54 Follow up: Response: No adverse reaction; Pain is decreased jl7 Outcome: 10:17 Discharge ordered by . snw 10:30 Condition: stable jl7 10:30 Discharge instructions given to patient, family, Instructed on discharge instructions, follow up and referral plans. medication usage, Demonstrated understanding of instructions, follow-up care, medications, Prescriptions given X 1. 10:30 Discharged to care home. Report called to Qi leone 10:49 Patient left the ED. [id number] Signatures: Dispatcher [employer] EDAR Mignon Fritz, YARN BLEACHING MACHINE OPERATOR-C YARN BLEACHING MACHINE OPERATOR-Csnw Rita Vargas, RN RN jl7 Corrections: (The following items were deleted from the chart) 10:48 10:30 Discharged to care home. Report called to Qi leone
--- NOTE | 2018-07-09 10:25 | RAD REPORT ---
EXAM DESCRIPTION: RAD - Humerus Left - 07/09/2018 9:29 am CLINICAL HISTORY: SMASH INJURY Trauma, left shoulder pain COMPARISON: No comparisons FINDINGS: Fracture of the proximal left humerus with mild impaction is seen. No dislocation is evide nt.
[2018-07-09 11:06] VITALS: TEMP 99.3
[2018-07-09 11:07] VITALS: BP 132/57; O2SAT 98
== END 2018-07-09 10:49 | disposition home or self-care (01) ==
LOC: ER 09:08
DX: S42.202A Unspecified fracture of upper end of left humerus, initial encounter for closed fracture (principal); W18.39XA Other fall on same level, initial encounter; Y93.89 Activity, other specified; Y92.9 Unspecified place or not applicable; Z88.0 Allergy status to penicillin; Z88.1 Allergy status to other antibiotic agents; Z88.8 Allergy status to other drugs, medicaments and biological substances; I10 Essential (primary) hypertension
CPT/HCPCS: 70450; 72125; 99284

== ENCOUNTER 2019-05-21 09:55 | Emergency (ER) | payer OTHER ==
--- NOTE | 2019-05-21 10:47 | RAD REPORT ---
EXAM DESCRIPTION: RAD - Pelvis - 05/21/2019 10:37 am CLINICAL HISTORY: Pelvic pain status post injury FINDINGS: Compression screw and intramedullary grady affix a subacute left femoral fracture. Bones are osteoporotic. No acute fracture or dislocation seen
--- NOTE | 2019-05-21 10:48 | RAD REPORT ---
EXAM DESCRIPTION: RAD - Femur Left - 05/21/2019 10:36 am CLINICAL HISTORY: Left leg pain FINDINGS: Compression screw and intramedullary grady affix a subacute left femoral fracture. Bones are osteoporotic. No acute fracture or dislocation seen
--- NOTE | 2019-05-21 10:48 | RAD REPORT ---
EXAM DESCRIPTION: RAD - Lumbar Spine 3 Views - 05/21/2019 10:37 am CLINICAL HISTORY: Back pain FINDINGS: The bones are osteoporotic. Mild anterior subluxation L4-L5 Alignment of the remainder lumbar spine is satisfactory. No fracture seen
--- NOTE | 2019-05-21 11:06 | RAD REPORT ---
EXAM DESCRIPTION: CT - Head C Spine Mpr Wo Con - 05/21/2019 10:41 am CLINICAL HISTORY: Head and neck injury status post fall. Head and neck pain COMPARISON: 2018 TECHNIQUE: Computed axial tomography of the head and cervical spine was obtained. Sagittal and coronal reconstruction was performed. All CT scans are performed using dose optimization technique as appropriate and may include automated exposure control or mA/KV adjustment according to patient size. FINDINGS: Right frontal scalp hematoma. Underlying skull fracture is not seen. 4.5 x 1.5 centimeter fluid collection along the left temporal convexity and extending into the tempor al lobe parenchyma. This has the appearance of an acute subdural hematoma with intraparenchymal and s ubarachnoid blood as well. There is shift of midline structures 3 millimeters towards the right. Moderate low-density areas within periventricular, deep and subcortical white matter likely ischemic changes secondary to small vessel disease. A cervical fracture is not visualized. No dislocation is noted. IMPRESSION: 4.5 x 1.5 centimeter fluid collection along the left temporal convexity and extending in to the temporal lobe parenchyma. This has the appearance of an acute subdural hematoma with intrapare nchymal and subarachnoid blood as well. The exam was discussed with Dr. Ramon in the emergency room at 10:53 a.m. on 05/21/2019
[2019-05-21] MEDS ORDERED: Nicardipine/NS 25 MG/250 ML KIT IV ONE (11:07)
--- NOTE | 2019-05-21 11:12 | ER ---
Nurse's Notes [facility] Name: Cathy Orozco Age: 84 yrs Sex: Female : 1935 Arrival Date: 05/21/2019 Time: 09:56 Bed 7 Private MD: Diagnosis: Traumatic subarachnoid hemorrhage;Traumatic Subdural hematoma;Traumatic intraparenchymal hemorrhage Presentation: 05/21 09:59 Presenting complaint: EMS states: pt was attempting to ambulate without assistance, hx iw of left femur fracture, fell to ground, hit head, no LOC, large hematoma to right forehead, no on blood thinners, hx of dementia. Care prior to arrival: None. Mechanism of Injury: Fall from standing position. Trauma event details: Injury occurred in the [facility], Injury occurred: Injury occurred: May 21, 2019. 09:59 Acuity: GEORGETTE 3 iw 09:59 Method Of Arrival: EMS: [facility] iw 10:25 Transition of care: patient was received from another setting of care (long-term care la facility), [facility]. Onset of symptoms was May 21, 2019. Risk Assessment: Do you want to hurt yourself or someone else? Unable to obtain. Initial Sepsis Screen: Does the patient meet any 2 criteria? No. Patient's initial sepsis screen is negative. Does the patient have a suspected source of infection? No. Patient's initial sepsis screen is negative. 11:14 Acuity: GEORGETTE 2 la1 Trauma Activation: Not Applicable Physician: ED Physician; Name: ; Notified At: ; Arrived At: Physician: General Surgeon; Name: ; Notified At: ; Arrived At: Physician: Radiology; Name: ; Notified At: ; Arrived At: Physician: Respiratory; Name: ; Notified At: ; Arrived At: Physician: Lab; Name: ; Notified At: ; Arrived At: Historical: - Allergies: 10:13 Ciprofloxacin; iw 10:13 metformin; iw 10:13 PENICILLINS; iw 10:13 steroids; iw - Home Meds: 10:13 Arginaid 4.5 gram-156 mg/9.2 gram oral pwpk twice a day [Active]; ascorbic acid iw (vitamin C) 500 mg TbER twice a day [Active]; Depakote Sprinkles 125 mg Oral cpSP [Active]; docusate sodium 100 mg Oral cap 1 cap once daily [Active]; duloxetine 30 mg oral cpDR 1 cap once daily [Active]; hydroxyzine HCl 10 mg Oral tab three times a day [Active]; lactulose 20 gram/30 mL Oral soln once daily [Active]; [place] 5-325 mg Oral tab nightly [Active]; promethazine 25 mg Oral tab 1 tab every 6 hours [Active]; trazodone 50 mg Oral tab 2 times per day [Active]; - PMHx: 10:13 Dementia; Depression; Diabetes - NIDDM; dizziness-vertigo; fall; Hyperlipidemia; iw Hypertension; palpitations; SVT; - Immunization history:: Adult Immunizations up to date. - Immunization history: Last tetanus immunization: unknown. - Social history:: Smoking status: unknown. - Ebola Screening: : No symptoms or risks identified at this time. - Family history:: not pertinent. - Hospitalizations: : No recent hospitalization is reported. Screenin:23 Abuse screen: Denies threats or abuse. Nutritional screening: No deficits noted. la1 Tuberculosis screening: No symptoms or risk factors identified. Fall risk None identified. 10:26 Fall Risk Fall in past 12 months (25 points). Secondary diagnosis (15 points) No IV (0 la1 pts). Ambulatory Aid- None/Bed Rest/Nurse Assist (0 pts). Gait- Weak (10 pts.). Mental Status- Overestimates/Forgets Limitations (15 pts.). Total Stringer Fall Scale indicates High Risk Score (45 or more points). Family Present and informed to notify staff if the need to leave the bedside As available patient and family educated on Fall Prevention Program and Strategies. Primary Survey: 10:00 NO uncontrolled hemorrhage observed. la1 10:00 A: The patient is alert. Airway: patent, No supplemental oxygen in use on arrival. Oral la1 cavity: clear. Breathing/Chest: Respiratory pattern: regular, Respiratory effort: spontaneous, Breath sounds: clear, Chest inspection: symmetrical rise and fall of the chest. Circulation: Skin color: pink, Skin temperature: warm. Disability Alert. Exposure/Environment: A warming method has been applied: A warm blanket has been provided to the patient. 10:23 Reassessment Airway Airway Patent Breathing/Chest Respiratory pattern Regular la1 Respiratory effort Spontaneous Unlabored Circulation Color [place] Temperature Warm Disability Alert. 11:20 A: The patient is alert. Airway: patent, No supplemental oxygen in use on arrival. Oral la1 cavity: clear. Breathing/Chest: Respiratory pattern: regular, Respiratory effort: spontaneous, unlabored, Breath sounds: clear, Chest inspection: symmetrical rise and fall of the chest. Circulation: Skin color: pink, Skin temperature: warm. Disability Alert. Exposure/Environment: A warming method has been applied: A warm blanket has been provided to the patient. Secondary Survey: 10:00 HEENT: Face Other hematoma to right frontal scalp area. la1 Assessment: 10:24 General: Appears in no apparent distress. Behavior is calm, cooperative. Pain: la1 Complains of pain in forehead and right bahai. Neuro: Level of Consciousness is awake, alert, obeys commands. Cardiovascular: Capillary refill < 3 seconds Patient's skin is warm and dry. Respiratory: Airway is patent Respiratory effort is even, unlabored, Respiratory pattern is regular, symmetrical, Breath sounds are clear bilaterally. GI: Abdomen is round non-distended, Bowel sounds present X 4 quads. Abd is soft and non tender X 4 quads. : No signs and/or symptoms were reported regarding the genitourinary system. Musculoskeletal: Circulation, motion, and sensation intact. Capillary refill < 3 seconds, is brisk, in bilateral fingers. Vital Signs: 10:00 BP 167 / 74; Pulse 86; Resp 16; Temp 97.4; Pulse Ox 100% on R/A; la1 10:45 BP 180 / 61; Pulse 72; Resp 16; Pulse Ox 100% ; jl7 11:19 BP 165 / 66; Pulse 78; Resp 16; Pulse Ox 98% on R/A; la1 11:51 BP 131 / 50; Pulse 76; Resp 16; Pulse Ox 98% on R/A; la1 11:59 BP 131 / 52; Pulse 84; Resp 16; Pulse Ox 98% on R/A; la1 Valorie Coma Score: 10:00 Eye Response: spontaneous(4). Verbal Response: confused(4). Motor Response: obeys la1 commands(6). Total: 14. Trauma Score (Adult): 10:00 Eye Response: spontaneous(1); Verbal Response: confused(1); Motor Response: obeys la1 commands(2); Systolic BP: > 89 mm Hg(4); Respiratory Rate: 10 to 29 per min(4); Valorie Score: 14; Trauma Score: 12 11:14 Eye Response: spontaneous(1); Verbal Response: confused(1); Motor Response: obeys la1 commands(2); Systolic BP: > 89 mm Hg(4); Respiratory Rate: 10 to 29 per min(4); Valorie Score: 14; Trauma Score: 12 11:51 Eye Response: spontaneous(1); Verbal Response: confused(1); Motor Response: obeys la1 commands(2); Systolic BP: > 89 mm Hg(4); Respiratory Rate: 10 to 29 per min(4); Valorie Score: 14; Trauma Score: 12 ED Course: 09:56 Patient arrived in ED. iw 09:58 Noe Ramon MD is Attending Physician. rn 10:01 Triage completed. iw 10:17 Giuseppe Todd, RN is Primary Nurse. la1 10:24 Patient has correct armband on for positive identification. Bed in low position. Call la1 light in reach. Side rails up X 1. Adult w/ patient. 10:36 XRAY Lumbar Spine (3 Views) In Process Unspecified. EDMS 10:36 XRAY Pelvis In Process Unspecified. EDMS 10:36 XRAY Femur LEFT In Process Unspecified. EDMS 10:36 XRAY Chest (1 view) In Process Unspecified. EDMS 10:41 CT completed. Patient tolerated procedure well. Patient moved back from CT. mw3 10:42 CT Head C Spine In Process Unspecified. EDMS 11:00 Inserted saline lock: 18 gauge in right forearm, using aseptic technique. Blood la1 collected. 11:14 Patient maintains SpO2 saturation greater than 95% on room air. Thermoregulation: warm la1 blanket given to patient. 11:59 No provider procedures requiring assistance completed. Patient transferred, IV remains la1 in place. 12:00 Arm band placed on. la1 Administered Medications: 11:13 Drug: niCARdipine (25mg/250ml) 5 mg/hr Route: IV; Rate: calculated rate; Site: right la1 forearm; 11:52 Follow up: IV Status: Infusion continued upon transfer la1 11:42 Drug: Keppra 1000 mg Route: IV; Rate: calculated rate; Site: left forearm; em 12:00 Follow up: IV Status: Completed infusion la1 Intake: 11:59 IV: 100ml (IV Fluid); Total: 100ml. la1 Outcome: 11:11 ER care complete, transfer ordered by . izabela 11:59 Transferred by ground EMS to [facility], Transfer form completed. X-rays sent la1 w/ patient. 11:59 Condition: stable 11:59 Instructed on the need for transfer. 11:59 Multiple radiology studies requiredPatient's length of stay extended due to la1 12:03 Patient left the ED. la1 Signatures: Dispatcher [employer] EDMS Bari Lanza, MAJOR GENERAL MAJOR GENERAL em Eve Rogers, RN RN iw Noe Ramon MD MD rn Attema, Lee RN IZABELA la1 Rita Vargas RN RN jl7 Laila Joseph mw3 Corrections: (The following items were deleted from the chart) 11:52 10:00 HEENT: Face Other hematoma for frontal scalp area la1 la1
--- NOTE | 2019-05-21 11:12 | EDPHYS ---
Physician Documentation [facility] Name: Cathy Orozco Age: 84 yrs Sex: Female : 1935 Arrival Date: 05/21/2019 Time: 09:56 Bed 7 Private MD: ED Physician Noe Ramon HPI: 05/21 10:47 This 84 yrs old Female presents to ER via EMS with complaints of Fall Injury. rn 10:47 Details of fall: The patient fell from an upright position. Onset: The symptoms/episode rn began/occurred just prior to arrival. Associated injuries: The patient sustained injury to the head. Severity of symptoms: At their worst the symptoms were mild, in the emergency department the symptoms are unchanged. The patient has experienced similar episodes in the past. Per EMS, fall, tripped over mat on floor, hit front of head, no LOC, no vomiting, no seizure, not on blood thinners. Patient reports mild headache. . Per fci, patient at baseline mentally, has dementia and A\T\O x 1. . Historical: - Allergies: 10:13 Ciprofloxacin; iw 10:13 metformin; iw 10:13 PENICILLINS; iw 10:13 steroids; iw - Home Meds: 10:13 Arginaid 4.5 gram-156 mg/9.2 gram oral pwpk twice a day [Active]; ascorbic acid iw (vitamin C) 500 mg TbER twice a day [Active]; Depakote Sprinkles 125 mg Oral cpSP [Active]; docusate sodium 100 mg Oral cap 1 cap once daily [Active]; duloxetine 30 mg oral cpDR 1 cap once daily [Active]; hydroxyzine HCl 10 mg Oral tab three times a day [Active]; lactulose 20 gram/30 mL Oral soln once daily [Active]; [place] 5-325 mg Oral tab nightly [Active]; promethazine 25 mg Oral tab 1 tab every 6 hours [Active]; trazodone 50 mg Oral tab 2 times per day [Active]; - PMHx: 10:13 Dementia; Depression; Diabetes - NIDDM; dizziness-vertigo; fall; Hyperlipidemia; iw Hypertension; palpitations; SVT; - Immunization history:: Adult Immunizations up to date. - Immunization history: Last tetanus immunization: unknown. - Social history:: Smoking status: unknown. - Ebola Screening: : No symptoms or risks identified at this time. - Family history:: not pertinent. - Hospitalizations: : No recent hospitalization is reported. ROS: 10:47 Constitutional: Negative for fever, chills, and weight loss, Eyes: Negative for injury, rn pain, redness, and discharge, Neck: + neck pain Cardiovascular: Negative for chest pain, palpitations, and edema, Respiratory: Negative for shortness of breath, cough, wheezing, and pleuritic chest pain, Abdomen/GI: Negative for abdominal pain, nausea, vomiting, diarrhea, and constipation, Back: + low back pain MS/Extremity: Negative for injury and deformity, Skin: Negative for injury, rash, and discoloration, Neuro: + headache, no focal weakness/numbness Exam: 10:47 Constitutional: This is a well developed, well nourished patient who is awake, alert, rn and in no acute distress. Head/Face: + right frontal hematoma without laceration Eyes: Pupils equal round and reactive to light, extra-ocular motions intact. ENT: no oral trauma Neck: Trachea midline, no thyromegaly or masses palpated, and no cervical lymphadenopathy. Supple, full range of motion without nuchal rigidity, or vertebral point tenderness. No Meningismus. + mild left lateral/posterior neck pain Chest/axilla: Normal chest wall appearance and motion. Nontender with no deformity. No lesions are appreciated. Cardiovascular: Regular rate and rhythm. No pulse deficits. Respiratory: No increased work of breathing, no retractions or nasal flaring. Abdomen/GI: soft, non-tender Back: No spinal tenderness. No costovertebral tenderness. Full range of motion. MS/ Extremity: Pulses equal, no cyanosis. Neurovascular intact. Mild painful ROM left hip/thigh Neuro: Awake and alert, oriented to person. Cranial nerves II-XII grossly intact. Motor strength 4/5 in all extremities. Sensory grossly intact. Vital Signs: 10:00 BP 167 / 74; Pulse 86; Resp 16; Temp 97.4; Pulse Ox 100% on R/A; la1 10:45 BP 180 / 61; Pulse 72; Resp 16; Pulse Ox 100% ; jl7 11:19 BP 165 / 66; Pulse 78; Resp 16; Pulse Ox 98% on R/A; la1 11:51 BP 131 / 50; Pulse 76; Resp 16; Pulse Ox 98% on R/A; la1 11:59 BP 131 / 52; Pulse 84; Resp 16; Pulse Ox 98% on R/A; la1 Valorie Coma Score: 10:00 Eye Response: spontaneous(4). Verbal Response: confused(4). Motor Response: obeys la1 commands(6). Total: 14. Trauma Score (Adult): 10:00 Eye Response: spontaneous(1); Verbal Response: confused(1); Motor Response: obeys la1 commands(2); Systolic BP: > 89 mm Hg(4); Respiratory Rate: 10 to 29 per min(4); Valorie Score: 14; Trauma Score: 12 11:14 Eye Response: spontaneous(1); Verbal Response: confused(1); Motor Response: obeys la1 commands(2); Systolic BP: > 89 mm Hg(4); Respiratory Rate: 10 to 29 per min(4); Valorie Score: 14; Trauma Score: 12 11:51 Eye Response: spontaneous(1); Verbal Response: confused(1); Motor Response: obeys la1 commands(2); Systolic BP: > 89 mm Hg(4); Respiratory Rate: 10 to 29 per min(4); [place] Score: 14; Trauma Score: 12 MDM: 09:58 Patient medically screened. rn 11:03 Differential diagnosis: closed head injury, contusion. Data reviewed: vital signs, rn nurses notes, radiologic studies, CT scan, plain films, and as a result, I will admit patient. Counseling: I had a detailed discussion with the patient and/or guardian regarding: the historical points, exam findings, and any diagnostic results supporting the discharge/admit diagnosis, radiology results, the need to transfer to another facility, for higher level of care, [facility] does not immediately have the required specialist. Response to treatment: the patient's symptoms have mildly improved after treatment, and as a result, I will admit patient. ED course: Per radiology, traumatic mixture of subdural/intraparenchymal/subarachnoid hemorrhage contra-coup to head trauma. Patient at baseline otherwise. reese added, will have to transfer for traumatic hemorrhage. . 05/21 10:54 Order name: CBC with Diff rn 05/21 10:54 Order name: Basic Metabolic Panel rn 05/21 09:59 Order name: CT Head C Spine; Complete Time: 11:11 rn 05/21 09:59 Order name: XRAY Lumbar Spine (3 Views); Complete Time: 11:11 rn 05/21 10:54 Order name: Protime (+inr) rn 05/21 10:54 Order name: Ptt, Activated rn 05/21 09:59 Order name: XRAY Pelvis; Complete Time: 11:11 rn 05/21 09:59 Order name: XRAY Femur LEFT; Complete Time: 11: rn 05/21 09:59 Order name: XRAY Chest (1 view) rn 05/21 10:54 Order name: IV Start; Complete Time: 11:13 rn Administered Medications: 11:13 Drug: niCARdipine (25mg/250ml) 5 mg/hr Route: IV; Rate: calculated rate; Site: right la1 forearm; 11:52 Follow up: IV Status: Infusion continued upon transfer la1 11:42 Drug: Keppra 1000 mg Route: IV; Rate: calculated rate; Site: left forearm; em 12:00 Follow up: IV Status: Completed infusion la1 Disposition: 05/21/19 11:11 Transfer ordered to [facility]. Diagnosis are Traumatic subarachnoid hemorrhage, Traumatic Subdural hematoma, Traumatic intraparenchymal hemorrhage. - Reason for transfer: Higher level of care. - Accepting physician is . - Condition is Stable. - Problem is new. - Symptoms are unchanged. Signatures: Dispatcher [employer] EDBari Cooper, POULTRY FIELD SERVICE TECHNICIAN POULTRY FIELD SERVICE TECHNICIAN em Eve Rogers RN RN iw Nieto, Roman, MD MD rn Attema, Lee, RN RN la1 Corrections: (The following items were deleted from the chart) 12:03 11:11 05/21/2019 11:11 Transfer ordered to [facility]. la1 Diagnosis is Traumatic subarachnoid hemorrhage; Traumatic Subdural hematoma; Traumatic intraparenchymal hemorrhage. Reason for transfer: Higher level of care. Accepting physician is . Condition is Stable. Problem is new. Symptoms are unchanged. rn
[2019-05-21 11:28] LABS: Absolute Lymphocytes (CBC) 1.8 K/uL (0.7-4.9); Basophils % 0.4 % (0-1.3); Hematocrit 30.9 % (36.0-45.0); Lymphocytes % 26.4 % (15.3-44.8); MPV 9.9 fL (7.6-11.3); RBC Red Blood Cell Count 3.37 M/uL (3.86-4.86)
[2019-05-21] MEDS ORDERED: levETIRAcetam 1,000 MG in NA CHLORIDE 0.9% 100 ML IV ONE (11:30)
[2019-05-21 11:32] LABS: BUN Blood Urea Nitrogen 14 mg/dL (7-18); Bicarbonate 32 mmol/L (21-32); Glucose Level 177 mg/dL (74-106); Protime INR 1.04; Sodium Level 139 mmol/L (136-145)
[2019-05-21 12:17] VITALS: TEMP 97.4
[2019-05-21 12:20] VITALS: O2SAT 98
[2019-05-21 12:22] VITALS: BP 131/52
--- NOTE | 2019-05-21 12:30 | RAD REPORT ---
EXAM DESCRIPTION: Joseph Single View05/21/2019 10:37 am CLINICAL HISTORY: Chest pain COMPARISON: March 2019 FINDINGS: Old left humeral fracture The lungs appear clear of acute infiltrate. The heart is normal size IMPRESSION: No acute abnormalities displayed
== END 2019-05-21 12:03 | disposition short-term general hospital (02) ==
LOC: ER 09:55
DX: S06.6X0A Traumatic subarachnoid hemorrhage without loss of consciousness, initial encounter (principal); S06.5X0A Traumatic subdural hemorrhage without loss of consciousness, initial encounter; W01.10XA Fall on same level from slipping, tripping and stumbling with subsequent striking against unspecified object, initial encounter; Y93.9 Activity, unspecified; Y92.9 Unspecified place or not applicable
CPT/HCPCS: 96365; 96368; 85025; 80048; 36415; 85610; 85730; 70450; 72125; 71045; 72100; 72170; 73552; 99285; J1953